=== PATIENT | female | born 1990 | race Caucasian/White ===

== ENCOUNTER 2017-03-01 19:00 | Emergency (ER) | payer MEDICAID ==
[~2017-03-01] VITALS: Ht 170.2 cm; Wt 79.4 kg
[~2017-03-01 19:00] MED LIST: PNV1TABL9 PO
--- NOTE | 2017-03-01 19:45 | ED Integumentary General ---
General Chief Complaint: Allergic Reaction Stated Complaint: POISON IVIS Nursing Triage Note: PT TO ED 6 W/ C/O POISON IVIS ONSET YESTERDAY. REPORTS SHE WAS UNABLE TO SEE PCP OR GET TO QUICK CARE BEFORE THEY CLOSED. C/O ITCHING Source: patient Exam Limitations: no limitations History of Present Illness Time seen by provider: 19:45 Initial Comments 26-year-old female patient presents to the emergency department complains of poison ivis beginning yesterday. Patient states she was weed eating and mowing yesterday morning. States this progressively has gotten worse throughout the day. Timing/Duration: yesterday, getting worse Location: face, torso, extremities (BUE) Possible Cause: exposure to allergen Modifying Factors: worse with calamine lotion, worse with scratching Allergies and Home Medications Allergies Coded Allergies: No Known Drug Allergies (Unverified , 11/10/13) Home Medications Famotidine 20 Mg Tablet, 20 MG PO BID, #20 Ref 0 Prescribed by: BURKE JASON on 03/01/172029 Pnv Cmb#21/Iron/Folic Acid 1 Each Tablet, 1 EACH PO DAILY, (Reported) Prednisone 20 Mg Tab, 40 MG PO DAILY, #10 Ref 0 Prescribed by: BURKE JASON on 03/01/172029 [blue goo] , 0.5 ML TOP QID PRN for RASH, #1 Ref 0 Prescribed by: BURKE JASON on 03/01/172029 Constitutional: no symptoms reported EENTM: no symptoms reported Respiratory: No cough, No short of breath, No stridor, No wheezing Cardiovascular: no symptoms reported Gastrointestinal: No abdominal pain, No diarrhea, No nausea, No vomiting Musculoskeletal: no symptoms reported Skin: see HPI, rash Psychiatric/Neurological: Denies Headache All Other Systems Reviewed Negative Unless Noted: Yes (Negative excepted noted.) Past Ypkmdan-Zvymxg-Omussv Hx Patient Social History Alcohol Use: Denies Use Recreational Drug Use: No Smoking Status: Current Everyday Smoker Type Used: Cigarettes 2nd Hand Smoke Exposure: Yes Recent Foreign Travel: No Contact w/Someone Who Travel: No Recent Infectious Disease Expo: No Recent Hopitalizations: No Immunizations Up To Date Date of Influenza Vaccine: Aug 01, 2013 Seasonal Allergies Seasonal Allergies: No Surgeries HX Surgeries: No Respiratory Hx Respiratory Disorders: No Cardiovascular Hx Cardiac Disorders: No Neurological Hx Neurological Disorders: No Reproductive System Hx Reproductive Disorders: No Sexually Transmitted Disease: No Genitourinary Hx Genitourinary Disorders: No Gastrointestinal Hx Gastrointestinal Disorders: No Musculoskeletal Hx Musculoskeletal Disorders: No Endocrine Hx Endocrine Disorders: No HEENT HX ENT Disorders: No Cancer Hx Cancer: No Psychosocial Hx Psychiatric Problems: No Integumentary HX Skin/Integumentary Disorder: No Blood Transfusions Hx Blood Disorders: No Reviewed Nursing Assessment Reviewed/Agree w Nursing PMH: Yes Family Medical History Significant Family History: No Pertinent Family Hx Physical Exam Vital Signs Vital Sign - Last 12Hours 03/01/17 03/01/17 19:18 20:41 Temp 98.4 Pulse 78 Resp 20 B/P (MAP) 115/89 Pulse Ox 98 O2 Delivery Room Air O2 Flow Rate 0 Capillary Refill : Less Than 3 Seconds General Appearance: WD/WN, no apparent distress HEENT: PERRL/EOMI, pharynx normal, other (rash on the right cheek noted consistent with poison ivis) Neck: non-tender, supple, normal inspection Cardiovascular: regular rate, rhythm, no murmur Respiratory: lungs clear, normal breath sounds, no respiratory distress Neurologic/Psychiatric: alert, normal mood/affect, oriented x 3 Skin: normal color, warm/dry, rash (papular raised rash with linear lesions noted on the BUE, rt cheek and anterior chest.) Skin Problem Location: face, upper extremities, torso Skin Problem Character: linear, rash (papular raised rash with linear lesions noted on the BUE, rt cheek and anterior chest.) Progress/Results/Core Measures Results/Orders My Orders Orders - BURKE JASON Famotidine Tablet (Pepcid Tablet) (03/01/17 20:20) Dexamethasone Pf Injection (Decadron Pf (03/01/17 20:20) Diphenhydramine Tablet (Benadryl Tablet) (03/01/17 20:30) Im/Sub-Q Injection Non-Ab Ed (03/01/17 ) Vital Signs/I&O Vital Sign - Last 12Hours 03/01/17 03/01/17 19:18 20:41 Temp 98.4 Pulse 78 0 Resp 20 0 B/P (MAP) 115/89 Pulse Ox 98 0 O2 Delivery Room Air O2 Flow Rate 0 Blood Pressure Mean: 98 Departure Impression Impression: Primary Impression: Poison ivis dermatitis Disposition: 01 HOME, SELF-CARE Condition: Improved Departure-Patient Inst. Decision time for Depature: 20:23 Referrals: NO,LOCAL PHYSICIAN (PCP) Primary Care Physician DOMINIC FONSECA (Family) Primary Care Physician Patient Instructions: Poison Ivis, Poison [place], Poison [place] (DC) Add. Discharge Instructions: All discharge instructions reviewed with patient and/or family. Voiced understanding. Medications as instructed. Benadryl ikjx-bwh-juqdmwg as directed for rash or itching. Cool compresses. Follow-up with her family practitioner if no improvement in symptoms. Return to the emergency department for worsened rash, difficulty swallowing, difficulty breathing, swelling of the face/throat/tongue, vomiting, headache, or any other concerns. Scripts Famotidine (Pepcid) 20 Mg Tablet 20 MG PO BID, #20 TAB 0 Refills Prov: BURKE JASON 03/01/17 [blue goo] No Conflict Check 0.5 ML TOP QID Y for RASH, #1 EA 0 Refills Prov: BURKE JASON 03/01/17 Prednisone (Prednisone) 20 Mg Tab 40 MG PO DAILY, #10 TAB 0 Refills Prov: BURKE JASON 03/01/17 BURKE JASON March 01, 2017 19:45
[2017-03-01] MEDS ORDERED: DEXAMETHASONE PF 10 MG/ML (DECADRON) VIAL IM STA (20:20)
[2017-03-01] MEDS ORDERED: FAMOTIDINE 20 MG (PEPCID) TABLET PO STA (20:20)
[2017-03-01] MEDS ORDERED: FAMO-119 PO ×2 (20:28→20:30)
[2017-03-01] MEDS ORDERED: PRD20T PO (20:30)
[2017-03-01] MEDS ORDERED: diphenhydrAMINE 25 MG TAB (BENADRYL) PO ONE (20:30)
[2017-03-01] MEDS ORDERED: blue goo TOP (20:30)
[2017-03-01 20:41] VITALS: BP 0/0
== END 2017-03-01 20:41 | disposition home or self-care (01) ==
LOC: EDUNIT# 19:00 → ER 19:02
DX: L23.7 Allergic contact dermatitis due to plants, except food (principal); F17.210 Nicotine dependence, cigarettes, uncomplicated
CPT/HCPCS: 96372; 99282

== ENCOUNTER 2017-03-07 12:48 | Emergency (ER) | payer MEDICAID ==
[~2017-03-07] VITALS: Ht 170.2 cm; Wt 79.4 kg
[~2017-03-07 12:48] MED LIST changes: +FAMO-119 PO; +PRD20T PO; +blue goo TOP
--- NOTE | 2017-03-07 13:11 | ED General ---
General Chief Complaint: Psych/Social Disorder Stated Complaint: ANXIETY Source of Information: Patient Exam Limitations: No Limitations History of Present Illness Time Seen by Provider: 13:09 Initial Comments Poor sleep habits, awakening in the middle of the night with palpitations, shortness of breath and anxiety, inability to focus, fatigue. Present for about the past week. She was started on prednisone 40 mg daily for poison enedina on the of this month. She stopped taking this 2 days ago. She reports a history of anxiety but states that her physician will not give her anything for it. Timing/Duration: 4-5 Days Severity: Moderate Allergies and Home Medications Allergies Coded Allergies: No Known Drug Allergies (Unverified , 11/10/13) Home Medications Famotidine 20 Mg Tablet, 20 MG PO BID, #20 Ref 0 Prescribed by: BURKE JASON on 03/01/172029 Lorazepam 0.5 Mg Tablet, 0.5 MG PO TID PRN for ANXIETY, #10 Prescribed by: LAINEY BRIGGS on 03/07/17 1326 Pnv Cmb#21/Iron/Folic Acid 1 Each Tablet, 1 EACH PO DAILY, (Reported) Prednisone 20 Mg Tab, 40 MG PO DAILY, #10 Ref 0 Prescribed by: BURKE JASON on 03/01/172029 [blue goo] , 0.5 ML TOP QID PRN for RASH, #1 Ref 0 Prescribed by: BURKE JASON on 03/01/172029 Constitutional: see HPI EENTM: see HPI Respiratory: no symptoms reported Cardiovascular: see HPI, palpitations Genitourinary: no symptoms reported Musculoskeletal: no symptoms reported Skin: no symptoms reported Psychiatric/Neurological: See HPI, Anxiety Hematologic/Lymphatic: No Symptoms Reported Past Sdfitmz-Sthzle-Fojusz Hx Patient Social History Alcohol Use: Denies Use Recreational Drug Use: No Smoking Status: Current Everyday Smoker Type Used: Cigarettes 2nd Hand Smoke Exposure: Yes Recent Foreign Travel: No Contact w/Someone Who Travel: No Recent Hopitalizations: No Immunizations Up To Date Date of Influenza Vaccine: Aug 01, 2013 Seasonal Allergies Seasonal Allergies: No Surgeries HX Surgeries: No Respiratory Hx Respiratory Disorders: No Cardiovascular Hx Cardiac Disorders: No Neurological Hx Neurological Disorders: No Reproductive System Hx Reproductive Disorders: No Sexually Transmitted Disease: No Genitourinary Hx Genitourinary Disorders: No Gastrointestinal Hx Gastrointestinal Disorders: No Musculoskeletal Hx Musculoskeletal Disorders: No Endocrine Hx Endocrine Disorders: No HEENT HX ENT Disorders: No Cancer Hx Cancer: No Psychosocial Hx Psychiatric Problems: No Integumentary HX Skin/Integumentary Disorder: No Blood Transfusions Hx Blood Disorders: No Family Medical History Significant Family History: No Pertinent Family Hx Physical Exam Vital Signs Vital Sign - Last 12Hours 03/07/17 12:57 Temp 98.1 Pulse 82 Resp 18 B/P (MAP) 133/72 Capillary Refill : General Appearance: No Apparent Distress, WD/WN Eyes: Bilateral Eye EOMI, Bilateral Eye Normal Inspection, Bilateral Eye PERRL HEENT: PERRL/EOMI, TMs Normal, Normal ENT Inspection, Pharynx Normal Neck: Full Range of Motion, Normal Inspection Respiratory: Normal Breath Sounds, No Accessory Muscle Use, No Respiratory Distress Cardiovascular: Regular Rate, Rhythm, Normal Peripheral Pulses Gastrointestinal: Normal Bowel Sounds, Non Tender, Soft Extremity: Normal Capillary Refill, Normal Inspection Neurologic/Psychiatric: Alert, Oriented x3, No Motor/Sensory Deficits Skin: Normal Color, Warm/Dry Progress/Results/Core Measures Results/Orders Lab Results Laboratory Tests Test 03/07/17 13:10 Range/Units White Blood Count 8.4 4.3-11.0 10^3/uL Red Blood Count 4.80 4.35-5.85 10^6/uL Hemoglobin 14.8 11.5-16.0 G/DL Hematocrit 42 35-52 % Mean Corpuscular Volume 88 80-99 FL Mean Corpuscular Hemoglobin 31 25-34 PG Mean Corpuscular Hemoglobin Concent 35 32-36 G/DL Red Cell Distribution Width 12.8 10.0-14.5 % Platelet Count 202 130-400 10^3/uL Mean Platelet Volume 10.3 7.4-10.4 FL Neutrophils (%) (Auto) 63 42-75 % Lymphocytes (%) (Auto) 30 12-44 % Monocytes (%) (Auto) 5 0-12 % Eosinophils (%) (Auto) 2 0-10 % Basophils (%) (Auto) 0 0-10 % Neutrophils # (Auto) 5.3 1.8-7.8 X 10^3 Lymphocytes # (Auto) 2.5 1.0-4.0 X 10^3 Monocytes # (Auto) 0.4 0.0-1.0 X 10^3 Eosinophils # (Auto) 0.2 0.0-0.3 10^3/uL Basophils # (Auto) 0.0 0.0-0.1 10^3/uL Urine Color YELLOW Urine Clarity SLIGHTLY CLOUDY Urine pH 8 5-9 Urine Specific [place] 1.010 L 1.016-1.022 Urine Protein NEGATIVE NEGATIVE Urine Glucose (UA) NEGATIVE NEGATIVE Urine Ketones NEGATIVE NEGATIVE Urine Nitrite NEGATIVE NEGATIVE Urine Bilirubin NEGATIVE NEGATIVE Urine Urobilinogen NORMAL NORMAL MG/DL Urine Leukocyte Esterase NEGATIVE NEGATIVE Urine RBC (Auto) NEGATIVE NEGATIVE Urine RBC NONE /HPF Urine WBC NONE /HPF Urine Squamous Epithelial Cells 25-50 H /HPF Urine Crystals NONE /LPF Urine Bacteria NEGATIVE /HPF Urine Casts NONE /LPF Urine Mucus NEGATIVE /LPF Urine Culture Indicated NO Sodium Level 142 135-145 MMOL/L Potassium Level 3.6 3.6-5.0 MMOL/L Chloride Level 108 H 98-107 MMOL/L Carbon Dioxide Level 27 21-32 MMOL/L Anion Gap 7 5-14 MMOL/L Blood Urea Nitrogen 8 7-18 MG/DL Creatinine 0.71 0.60-1.30 MG/DL Estimat Glomerular Filtration Rate > 60 BUN/Creatinine Ratio 11 Glucose Level 98 70-105 MG/DL Calcium Level 9.3 8.5-10.1 MG/DL Total Bilirubin 0.4 0.1-1.0 MG/DL Aspartate Amino Transf (AST/SGOT) 15 5-34 U/L Alanine Aminotransferase (ALT/SGPT) 18 0-55 U/L Alkaline Phosphatase 53 40-136 U/L Total Protein 6.7 6.4-8.2 G/DL Albumin 4.2 3.2-4.5 G/DL Thyroid Stimulating Hormone (TSH) 1.25 0.35-4.94 UIU/ML Free Thyroxine 1.01 0.70-1.48 NG/DL Urine Opiates Screen NEGATIVE NEGATIVE Urine Oxycodone Screen NEGATIVE NEGATIVE Urine Methadone Screen NEGATIVE NEGATIVE Urine Propoxyphene Screen NEGATIVE NEGATIVE Urine Barbiturates Screen NEGATIVE NEGATIVE Ur Tricyclic Antidepressants Screen NEGATIVE NEGATIVE Urine Phencyclidine Screen NEGATIVE NEGATIVE Urine Amphetamines Screen NEGATIVE NEGATIVE Urine Methamphetamines Screen NEGATIVE NEGATIVE Urine Benzodiazepines Screen NEGATIVE NEGATIVE Urine Cocaine Screen NEGATIVE NEGATIVE Urine Cannabinoids Screen NEGATIVE NEGATIVE My Orders Orders - LAINEY BRIGGS APRN Ua Culture If Indicated (03/07/17 13:02) Urine Bedside (03/07/17 13:02) Thyroid Stimulating Hormone (5/22/17 13:02) Free T4 (Free Thyroxine) (03/07/17 13:02) Drug Screen Stat (Urine) (03/07/17 13:02) Cbc With Automated Diff (03/07/17 13:02) Comprehensive Metabolic Panel (03/07/17 13:02) Alprazolam Tablet (Xanax Tablet) (03/07/17 13:15) Medications Given in ED Current Medications Medications Dose Ordered Sig/Irvin Route Start Time Stop Time Status Last Admin Dose Admin Alprazolam 0.25 mg ONCE ONCE PO 03/07/17 13:15 03/07/17 13:16 DC 03/07/17 13:16 0.25 MG Vital Signs/I&O Vital Sign - Last 12Hours 03/07/17 12:57 Temp 98.1 Pulse 82 Resp 18 B/P (MAP) 133/72 Departure Communication Progress Notes 1421-reports that she feels better after her Xanax. Heart rate 80s, oxygen saturation 97 percent on room air. No tachypnea. No history of DVT/PE. Nonsmoker. No recent surgery or immobilization. Impression Impression: Primary Impression: Anxiety Disposition: 01 HOME, SELF-CARE Condition: Stable Departure-Patient Inst. Decision time for Depature: 13:25 Referrals: NO,LOCAL PHYSICIAN (PCP/Family) Primary Care Physician Patient Instructions: Panic Disorder (DC) Add. Discharge Instructions: 1. Follow-up with your regular physician 2. Return to ER for any concerns 3. All discharge instructions reviewed with patient and/or family. Voiced understanding. Scripts Lorazepam (Lorazepam) 0.5 Mg Tablet 0.5 MG PO TID Y for ANXIETY, #10 TAB Prov: LAINEY BRIGGS [facility] C[facility] ASSISTANT DIRECTOR 03/07/17 LAINEY BRIGGS APRN March 07, 2017 13:11
[2017-03-07] MEDS ORDERED: ALPRAZolam 0.25 MG (XANAX) TAB PO ONE (13:15)
[2017-03-07 13:17] LABS: BASOPHILS % (AUTO) 0 % (0-10); EOSINOPHILS # (AUTO) 0.2 10^3/uL (0.0-0.3); EOSINOPHILS % (AUTO) 2 % (0-10); LYMPHOCYTES # (AUTO) 2.5 X 10^3 (1.0-4.0); LYMPHOCYTES % (AUTO) 30 % (12-44); MEAN CORPUSCULAR HEMOGLOBIN 31 PG (25-34); MEAN CORPUSCULAR HGB CONC 35 G/DL (32-36); MEAN CORPUSCULAR VOLUME 88 FL (80-99); MEAN PLATELET VOLUME 10.3 FL (7.4-10.4); MONOCYTES # (AUTO) 0.4 X 10^3 (0.0-1.0); MONOCYTES % (AUTO) 5 % (0-12); NEUTROPHILS # (AUTO) 5.3 X 10^3 (1.8-7.8); NEUTROPHILS % (AUTO) 63 % (42-75); PLATELET COUNT 202 10^3/uL (130-400); RED CELL DISTRIBUTION WIDTH 12.8 % (10.0-14.5); WHITE BLOOD COUNT 8.4 10^3/uL (4.3-11.0)
[2017-03-07 13:21] LABS: BILIRUBIN,URINE NEGATIVE (NEGATIVE); KETONES,URINE NEGATIVE (NEGATIVE); LEUKOCYTE ESTERASE ,URINE NEGATIVE (NEGATIVE); NITRITE,URINE NEGATIVE (NEGATIVE); PH,URINE 8 (5-9); PROTEIN,URINE NEGATIVE (NEGATIVE); UROBILINOGEN,URINE NORMAL (NORMAL)
[2017-03-07] MEDS ORDERED: LORA0.5T PO (13:26)
[2017-03-07 13:32] LABS: SQUAMOUS EPITHELIAL CELL,UR 25-50 /HPF
[2017-03-07 13:43] LABS: ALANINE AMINOTRANSFERASE 18 U/L (0-55); ALBUMIN 4.2 G/DL (3.2-4.5); ANION GAP 7 MMOL/L (5-14); ASPARTATE AMINO TRANSFERASE 15 U/L (5-34); BILIRUBIN,TOTAL 0.4 MG/DL (0.1-1.0); BLOOD UREA NITROGEN 8 MG/DL (7-18); BUN/CREATININE RATIO 11; CALCIUM 9.3 MG/DL (8.5-10.1); CARBON DIOXIDE 27 MMOL/L (21-32); CHLORIDE 108 MMOL/L (98-107); CREATININE SERUM 0.71 MG/DL (0.60-1.30); GFR ESTIMATED > 60; GLUCOSE 98 MG/DL (70-105); POTASSIUM 3.6 MMOL/L (3.6-5.0); SODIUM 142 MMOL/L (135-145); TOTAL PROTEIN 6.7 G/DL (6.4-8.2)
[2017-03-07 14:04] LABS: THYROID STIMULATING HORMONE 1.25 UIU/ML (0.35-4.94)
[2017-03-07 14:20] VITALS: BP 130/77
== END 2017-03-07 14:20 | disposition home or self-care (01) ==
LOC: EDUNIT# 12:48 → ER 12:51
DX: F41.9 Anxiety disorder, unspecified (principal); F17.210 Nicotine dependence, cigarettes, uncomplicated
CPT/HCPCS: 36415; 80053; 80306; 81000; 84439; 84443; 84703; 85025; 99283

== ENCOUNTER 2018-11-23 07:15 | Inpatient (IN) | payer MEDICAID ==
[2018-11-23] VITALS (66 sets, daily range): BP systolic 82–133; BP diastolic 47–75
[~2018-11-23] VITALS: Ht 170.2 cm; Wt 88.5 kg
[~2018-11-23 07:15] MED LIST changes: +LORA0.5T PO
--- NOTE | 2018-11-23 07:15 | NUR ---
Arrived to unit ambulates self for induction of labor. Accompanied by s.o. Wt obtained and to room 320. Gowned and urine sample obtained. to bed and monitors on. Oriented to room, call light and surroundings. plan of car reviewed with pt and s.o.
[2018-11-23] MEDS ORDERED: MINERAL OIL CONCENTRATE 99.9% 15 ML UDC TOP PRN (08:15)
[2018-11-23 08:23] LABS: BASOPHILS % (AUTO) 0 % (0-10); EOSINOPHILS # (AUTO) 0.2 10^3/uL (0.0-0.3); EOSINOPHILS % (AUTO) 2 % (0-10); HEMATOCRIT 33 % (35-52); HEMOGLOBIN 11.4 G/DL (11.5-16.0); LYMPHOCYTES # (AUTO) 1.8 X 10^3 (1.0-4.0); LYMPHOCYTES % (AUTO) 18 % (12-44); MEAN CORPUSCULAR HEMOGLOBIN 30 PG (25-34); MEAN CORPUSCULAR HGB CONC 34 G/DL (32-36); MEAN CORPUSCULAR VOLUME 87 FL (80-99); MEAN PLATELET VOLUME 11.3 FL (7.4-10.4); MONOCYTES # (AUTO) 0.8 X 10^3 (0.0-1.0); MONOCYTES % (AUTO) 8 % (0-12); NEUTROPHILS # (AUTO) 7.1 X 10^3 (1.8-7.8); NEUTROPHILS % (AUTO) 72 % (42-75); PLATELET COUNT 172 10^3/uL (130-400); WHITE BLOOD COUNT 9.8 10^3/uL (4.3-11.0)
[2018-11-23] MEDS ORDERED: OXYTOCIN/NORMAL SALINE 500 ML IV ONE (08:23)
[2018-11-23] MEDS ORDERED: OXYTOCIN/NORMAL SALINE 500 ML IV SCH ×2 (08:32→18:54)
[2018-11-23] MEDS: D5 LR IV SOLUTION 1,000 ML IV SCH ×2 (08:32→13:12)
[2018-11-23] MEDS ORDERED: SUFENTA 0.6MCG/ML BUPIVA 0.125 100 ML ONE (09:49)
[2018-11-23] MEDS ORDERED: fentaNYL INJECTION 100 MCG/2 ML AMP ONE (10:23)
[2018-11-23] MEDS ORDERED: BUPIVACAINE 0.25% 30 ML (SENSORCAINE) VIAL ONE (10:23)
[2018-11-23] MEDS ORDERED: LIDOCAINE PF 2% 5 ML (XYLOCAINE) VIAL ONE (10:34)
--- OUTSIDE RECORDS SUMMARY | 2018-11-23 10:40 | XMS REPORT ---
Author Author KEYSHAEDWARD ARSHAD Fernando [facility] Address Unknown Care Team Providers Care Dental Sales Representative Name Role Phone EDWARD FRANCOIS Unavailable PROBLEMS Type Condition ICD9-CM Code [id number] Code Onset Dates Condition Status SNOMED Code Problem Anxiety state, unspecified 300.00 Active 151605493 Problem Depressive disorder, not elsewhere classified 311 Active [id number] ALLERGIES No Known Allergies ENCOUNTERS Encounter Location Date Diagnosis [facility] [address] [place] [address] [id number] Mar, Dental examination Z01.20 [facility] [id number] [place] [address] [id number] Jan, [facility] [id number] [place] [address] [id number] Jan, Dental examination Z01.20 [facility] [id number] [place] [address] [id number] Nov, Dental examination Z01.20 [facility] [id number] [place] [address] [id number] Nov, Dental examination Z01.20 [facility] [id number] [place] [address] [id number] Mar, Encounter for dental examination Z01.20 [facility] [id number] [place] [address] [id number] Dec, Dental examination Z01.20 [facility] [id number] [place] [address] [id number] Jun, Dental examination V72.2 [facility] [id number] [place] [address] [id number] Apr, Dental examination V72.2 [facility] [id number] [place] [address] [phone] Nov, [facility] [address] [facility] [id number] [place] [address] Nov, [facility] [address] [facility] [id number], [place] [address] Oct, [facility] [address] [facility] [id number] [place] [address] Oct, IMMUNIZATIONS No Known Immunizations SOCIAL HISTORY Never Assessed REASON FOR VISIT caitlyn PLAN OF CARE Activity Details Follow Up prn Reason:referral to Dr. Donovan for endo VITAL SIGNS Blood pressure systolic 112 mmHg 2018-03-24 Blood pressure diastolic 64 mmHg 2018-03-24 MEDICATIONS Unknown Medications RESULTS No Results PROCEDURES Procedure Date Ordered Result Body Site LTD ORAL EVALUATION - PROBLEM FOCUS March 24, 2018 INSTRUCTIONS MEDICATIONS ADMINISTERED No Known Medications
--- OUTSIDE RECORDS SUMMARY | 2018-11-23 10:41 | XMS REPORT ---
Author Author KEYSHAEDWARD ARSHAD Fernando [facility] Address Unknown Care Team Providers Care Battery Assembler Dry Cell Name Role Phone EDWARD FRANCOIS Unavailable PROBLEMS Type Condition ICD9-CM Code [id number] Code Onset Dates Condition Status SNOMED Code Problem Anxiety state, unspecified 300.00 Active [id number] Problem Depressive disorder, not elsewhere classified 311 Active 92097220 ALLERGIES No Known Allergies ENCOUNTERS Encounter Location Date Diagnosis [facility] [address] [place] [address] [id number] Mar, Dental examination Z01.20 [facility] [id number] [place] [address] [id number] Jan, [facility] [id number] [place] [address] [id number] Jan, Dental examination Z01.20 [facility] [id number] [place] [address] [id number] Nov, Dental examination Z01.20 [facility] [id number] [place] [address] [id number] Nov, Dental examination Z01.20 [facility] [id number] [place] [address] [id number] Mar, Encounter for dental examination Z01.20 [facility] [id number] [place] [address] [id number] Dec, Dental examination Z01.20 [facility] [id number] [place] [address] [id number] Jun, Dental examination V72.2 [facility] [id number] [place] [address] [id number] Apr, Dental examination V72.2 [facility] [id number] [place] [phone] Nov, [facility] [address] [facility] [id number] [place] [address] Nov, [facility] [address] [facility] [id number], [place] [address] Oct, [facility] [address] [facility] [id number] [place] [address] Oct, IMMUNIZATIONS No Known Immunizations SOCIAL HISTORY Never Assessed REASON FOR VISIT Pain PLAN OF CARE Activity Details Follow Up prn Reason:fillings VITAL SIGNS Blood pressure systolic 113 mmHg 2017-11-30 Blood pressure diastolic 78 mmHg 2017-11-30 MEDICATIONS Unknown Medications RESULTS No Results PROCEDURES Procedure Date Ordered Result Body Site LTD ORAL EVALUATION - PROBLEM FOCUS Nov 30, 2017 INTRAORL-PERIAPICAL 1 FILM [id number] Nov 30, 2017 INSTRUCTIONS MEDICATIONS ADMINISTERED No Known Medications
--- OUTSIDE RECORDS SUMMARY | 2018-11-23 10:41 | XMS REPORT ---
Author Author KEYSHAEDWARD ARSHAD Fernando [facility] Address Unknown Care Team Providers Care Egg Tester Name Role Phone EDWARD FRANCOIS Unavailable PROBLEMS Type Condition ICD9-CM Code BGF06-RA Code Onset Dates Condition Status SNOMED Code Problem Anxiety state, unspecified 300.00 Active 713120733 Problem Depressive disorder, not elsewhere classified 311 Active 73616747 ALLERGIES No Known Allergies ENCOUNTERS Encounter Location Date Diagnosis [facility] [address] [place] [address] [id number] Mar, Dental examination Z01.20 [facility] [id number] [place] [address] [id number] Jan, [facility] [id number] [place] [address] [id number] Jan, Dental examination Z01.20 [facility] [id number] [place] [address] [id number] Nov, Dental examination Z01.20 [facility] [id number] [place] [address] [id number] Nov, Dental examination Z01.20 [facility] [id number] [place] [address] [id number] Mar, Encounter for dental examination Z01.20 [facility] [id number] [place] [address] [id number] Dec, Dental examination Z01.20 [facility] [id number] [place] [address] [id number] Jun, Dental examination V72.2 [facility] [id number] [place] [address] [id number] Apr, Dental examination V72.2 [facility] [id number] [place] [phone] Nov, [facility] [address] [facility] [id number], [place] [address] Nov, [facility] [address] [facility] [id number][place] [address] Oct, [facility] [address] [facility] [id number] [place] [address] Oct, IMMUNIZATIONS No Known Immunizations SOCIAL HISTORY Never Assessed REASON FOR VISIT filling PLAN OF CARE Activity Details Follow Up prn Reason:filling #7 VITAL SIGNS MEDICATIONS Unknown Medications RESULTS No Results PROCEDURES Procedure Date Ordered Result Body Site RESIN COMPOS - 1 SURFACE POSTERIOR Nov 25, 2017 INSTRUCTIONS MEDICATIONS ADMINISTERED No Known Medications
--- OUTSIDE RECORDS SUMMARY | 2018-11-23 10:41 | XMS REPORT ---
Author Author KEYSHAEDWARD ARSHAD Fernando [facility] Address Unknown Care Team Providers Care Company Tanker Truck Driver Name Role Phone EDWARD FRANCOIS Unavailable PROBLEMS Type Condition ICD9-CM Code FUC82-EO Code Onset Dates Condition Status SNOMED Code Problem Anxiety state, unspecified 300.00 Active 423256894 Problem Depressive disorder, not elsewhere classified 311 Active 82967667 ALLERGIES No Known Allergies ENCOUNTERS Encounter Location Date Diagnosis [facility] [address] [place] [address] [id number] Mar, Dental examination Z01.20 [facility] [id number] [place] [address] [id number] Jan, [facility] [id number] [place] [address] [id number] Jan, Dental examination Z01.20 [facility] [id number] [place] [address] [id number] Nov, Dental examination Z01.20 [facility] [id number] [place] [address] [id number] Nov, Dental examination Z01.20 [facility] [id number] [place] [address] [id number] Mar, Encounter for dental examination Z01.20 [facility] [id number] [place] [address] [id number] Dec, Dental examination Z01.20 [facility] [id number] [place] [address] [id number] Jun, Dental examination V72.2 [facility] [id number] [place] [address] [id number] Apr, Dental examination V72.2 [facility] [id number] [place] [phone] Nov, [facility] [address] [facility] [id number], [place] [address] Nov, [facility] [address] [facility] [id number], [place] [address] Oct, [facility] [address] [facility] [id number] [place] [address] Oct, IMMUNIZATIONS No Known Immunizations SOCIAL HISTORY Never Assessed REASON FOR VISIT Filling PLAN OF CARE Activity Details Follow Up prn Reason:filling #9 VITAL SIGNS Blood pressure systolic 118 mmHg 2018-02-01 Blood pressure diastolic 72 mmHg 2018-02-01 MEDICATIONS Unknown Medications RESULTS No Results PROCEDURES Procedure Date Ordered Result Body Site INTRAORL-PERIAPICAL 1 FILM [id number] February 01, 2018 BITEWING - SINGLE FILM February 01, 2018 RESIN COMPOS - 2 SURFACES ANTERIOR February 01, 2018 INSTRUCTIONS MEDICATIONS ADMINISTERED No Known Medications
--- OUTSIDE RECORDS SUMMARY | 2018-11-23 10:41 | XMS REPORT | Continuity of Care Document ---
Author Author [facility] Address Unknown Phone Unavailable Allergies Active Description Code Type Severity Reaction Onset Reported/Identified Relationship to Patient Clinical Status Yes No Known Drug Allergies [id number] Drug Allergy Unknown N/A 11/10/2013 Medications There is no data. Problems Date Dx Coded Attending Type Code Diagnosis Diagnosed By 10/31/2008 [facility] 300.01 AN PANIC DIS W/O AGORA 11/10/2013 DELMIS VENTURA MD Ot 646.83 PREG COMPL NEC-ANTEPART 11/10/2013 DELMIS VENTURA MD Ot 789.00 ABDOMINAL PAIN, UNSPECIFIED SITE 01/27/2014 DARWIN ARECHIGA DO Ot 599.0 URIN TRACT INFECTION NOS 01/27/2014 DARWIN ARECHIGA DO Ot 646.63 INFECTION-ANTEPARTUM 11/01/2014 [facility].00 AN ANXIETY UNSPEC 11/01/2014 [facility] 311 DEPRESSIVE DISORDER NOS 07/14/2016 RAMOS MAHAN, SEJAL Varghese Ot N39.0 URINARY TRACT INFECTION, SITE NOT SPECIF 03/01/2017 SEJAL BEASLEY MD Ot N39.0 URINARY TRACT INFECTION, SITE NOT SPECIF 03/01/2017 BURKE ONEILL Ot F17.210 NICOTINE DEPENDENCE, CIGARETTES, UNCOMPL 03/01/2017 BURKE ONEILL Ot L23.7 ALLERGIC CONTACT DERMATITIS DUE TO PLANT 03/01/2017 SEJAL BEASLEY MD Ot N39.0 URINARY TRACT INFECTION, SITE NOT SPECIF 03/03/2017 BURKE ONEILL Ot F17.210 NICOTINE DEPENDENCE, CIGARETTES, UNCOMPL 03/03/2017 BURKE ONEILL Ot L23.7 ALLERGIC CONTACT DERMATITIS DUE TO PLANT 03/07/2017 LAINEY BRIGGS APRN Ot F17.210 NICOTINE DEPENDENCE, CIGARETTES, UNCOMPL 03/07/2017 LAINEY BRIGGS APRN Ot F41.9 ANXIETY DISORDER, UNSPECIFIED 03/09/2017 LAINEY BRIGGS APRN Ot F17.210 NICOTINE DEPENDENCE, CIGARETTES, UNCOMPL 03/09/2017 LAINEY BRIGGS APRN Ot F41.9 ANXIETY DISORDER, UNSPECIFIED 03/09/2017 BRIGGSLAINEY APRN Ot F17.210 NICOTINE DEPENDENCE, CIGARETTES, UNCOMPL 03/09/2017 BRIGGS, LAINEY Franklin APRN Ot F41.9 ANXIETY DISORDER, UNSPECIFIED Procedures Code Description [place] [address] PSYCH DIAGNOSTIC EVALUATION 11/01/2014 Results Test Result Range Complete blood count (CBC) with automated white blood cell (WBC) differential - 03/07/17 13:10 Blood leukocytes automated count (number/volume) 8.4 10*3/uL 4.3-11.0 Blood erythrocytes automated count (number/volume) 4.80 10*6/uL 4.35-5.85 Venous blood hemoglobin measurement (mass/volume) 14.8 g/dL 11.5-16.0 Blood hematocrit (volume fraction) 42 % 35-52 Automated erythrocyte mean corpuscular volume 88 [foz_us] 80-99 Automated erythrocyte mean corpuscular hemoglobin (mass per erythrocyte) 31 pg 25-34 Automated erythrocyte mean corpuscular hemoglobin concentration measurement ( mass/volume) 35 g/dL 32-36 Automated erythrocyte distribution width ratio 12.8 % 10.0-14.5 Automated blood platelet count (count/volume) 202 10*3/uL 130-400 Automated blood platelet mean volume measurement 10.3 [foz_us] 7.4-10.4 Automated blood neutrophils/100 leukocytes 63 % 42-75 Automated blood lymphocytes/100 leukocytes 30 % 12-44 Blood monocytes/100 leukocytes 5 % 0-12 Automated blood eosinophils/100 leukocytes 2 % 0-10 Automated blood basophils/100 leukocytes 0 % 0-10 Blood neutrophils automated count (number/volume) 5.3 10*3 1.8-7.8 Blood lymphocytes automated count (number/volume) 2.5 10*3 1.0-4.0 Blood monocytes automated count (number/volume) 0.4 10*3 0.0-1.0 Automated eosinophil count 0.2 10*3/uL 0.0-0.3 Automated blood basophil count (count/volume) 0.0 10*3/uL 0.0-0.1 Complete urinalysis with reflex to culture - 03/07/17 13:10 Urine color determination YELLOW NRG Urine clarity determination SLIGHTLY CLOUDY NRG Urine pH measurement by test strip 8 5-9 Specific gravity of urine by test strip 1.010 1.016- 1.022 Urine protein assay by test strip, semi-quantitative NEGATIVE NEGATIVE Urine glucose detection by automated test strip NEGATIVE NEGATIVE Erythrocytes detection in urine sediment by light microscopy NEGATIVE NEGATIVE Urine ketones detection by automated test strip NEGATIVE NEGATIVE Urine nitrite detection by test strip NEGATIVE NEGATIVE Urine total bilirubin detection by test strip NEGATIVE NEGATIVE Urine urobilinogen measurement by automated test strip (mass/volume) NORMAL NORMAL Urine leukocyte esterase detection by dipstick NEGATIVE NEGATIVE Automated urine sediment erythrocyte count by microscopy (number/high power field) NONE NRG Automated urine sediment leukocyte count by microscopy (number/high power field ) NONE NRG Bacteria detection in urine sediment by light microscopy NEGATIVE NRG Squamous epithelial cells detection in urine sediment by light microscopy 25-50 NRG Crystals detection in urine sediment by light microscopy NONE NRG Casts detection in urine sediment by light microscopy NONE NRG Mucus detection in urine sediment by light microscopy NEGATIVE NRG Complete urinalysis with reflex to culture NO NRG Comprehensive metabolic panel - 03/07/17 13:10 Serum or plasma sodium measurement (moles/volume) 142 mmol/L 135-145 Serum or plasma potassium measurement (moles/volume) 3.6 mmol/L 3.6-5.0 Serum or plasma chloride measurement (moles/volume) 108 mmol/L 98-107 Carbon dioxide 27 mmol/L 21-32 Serum or plasma anion gap determination (moles/volume) 7 mmol/L 5-14 Serum or plasma urea nitrogen measurement (mass/volume) 8 mg/dL 7-18 Serum or plasma creatinine measurement (mass/volume) 0.71 mg/dL 0.60-1.30 Serum or plasma urea nitrogen/creatinine mass ratio 11 NRG Serum or plasma creatinine measurement with calculation of estimated glomerular filtration rate > NRG Serum or plasma glucose measurement (mass/volume) 98 mg/dL 70-105 Serum or plasma calcium measurement (mass/volume) 9.3 mg/dL 8.5-10.1 Serum or plasma total bilirubin measurement (mass/volume) 0.4 mg/dL 0.1-1.0 Serum or plasma alkaline phosphatase measurement (enzymatic activity/volume) 53 U/L 40-136 Serum or plasma aspartate aminotransferase measurement (enzymatic activity/ volume) 15 U/L 5-34 Serum or plasma alanine aminotransferase measurement (enzymatic activity/volume ) 18 U/L 0-55 Serum or plasma protein measurement (mass/volume) 6.7 g/dL 6.4-8.2 Serum or plasma albumin measurement (mass/volume) 4.2 g/dL 3.2-4.5 Urine drug screening test - 03/07/17 13:10 Urine phencyclidine detection by screening method NEGATIVE NEGATIVE Urine benzodiazepines detection by screening method NEGATIVE NEGATIVE Urine cocaine detection NEGATIVE NEGATIVE Urine amphetamines detection by screening method NEGATIVE NEGATIVE Urine methamphetamine detection by screening method NEGATIVE NEGATIVE Urine cannabinoids detection by screening method NEGATIVE NEGATIVE Urine opiates detection by screening method NEGATIVE NEGATIVE Urine barbiturates detection NEGATIVE NEGATIVE Screening urine tricyclic antidepressants detection NEGATIVE NEGATIVE Urine methadone detection by screening method NEGATIVE NEGATIVE Urine oxycodone detection NEGATIVE NEGATIVE Urine propoxyphene detection NEGATIVE NEGATIVE THYROID STIMULATING HORMONE - 03/07/17 13:10 THYROID STIMULATING HORMONE 1.25 u[iU]/mL 0.35-4.94 Serum or plasma thyroxine (T4) free measurement (mass/volume) - 03/07/17 13:10 Serum or plasma thyroxine (T4) free measurement (mass/volume) 1.01 ng/dL 0.70-1.48 Complete blood count (CBC) with automated white blood cell (WBC) differential - 11/23/18 07:50 Blood leukocytes automated count (number/volume) 9.8 10*3/uL 4.3-11.0 Blood erythrocytes automated count (number/volume) 3.82 10*6/uL 4.35-5.85 Venous blood hemoglobin measurement (mass/volume) 11.4 g/dL 11.5-16.0 Blood hematocrit (volume fraction) 33 % 35-52 Automated erythrocyte mean corpuscular volume 87 [foz_us] 80-99 Automated erythrocyte mean corpuscular hemoglobin (mass per erythrocyte) 30 pg 25-34 Automated erythrocyte mean corpuscular hemoglobin concentration measurement ( mass/volume) 34 g/dL 32-36 Automated erythrocyte distribution width ratio 13.0 % 10.0-14.5 Automated blood platelet count (count/volume) 172 10*3/uL 130-400 Automated blood platelet mean volume measurement 11.3 [foz_us] 7.4-10.4 Automated blood neutrophils/100 leukocytes 72 % 42-75 Automated blood lymphocytes/100 leukocytes 18 % 12-44 Blood monocytes/100 leukocytes 8 % 0-12 Automated blood eosinophils/100 leukocytes 2 % 0-10 Automated blood basophils/100 leukocytes 0 % 0-10 Blood neutrophils automated count (number/volume) 7.1 10*3 1.8-7.8 Blood lymphocytes automated count (number/volume) 1.8 10*3 1.0-4.0 Blood monocytes automated count (number/volume) 0.8 10*3 0.0-1.0 Automated eosinophil count 0.2 10*3/uL 0.0-0.3 Automated blood basophil count (count/volume) 0.0 10*3/uL 0.0-0.1 Blood type T Indirect antibody screen panel - 11/23/18 07:50 ABO+Rh group OP NRG Transfusion band number [id number] NRG Blood group antibody screen NEGATIVE NRG Encounters ACCT No. Visit Date/Time Discharge Status Pt. Type Provider Facility Loc./Unit Complaint [id number] 11/01/2014 11:03:00 11/01/2014 23:59:59 CLS Outpatient [facility] HOWARD Marisol [id number] 03/07/2017 12:51:00 03/07/2017 14:20:00 DIS Emergency LAINEY BRIGGS APRN [facility] ER ANXIETY [id number] 03/01/2017 19:02:00 03/01/2017 20:41:00 DIS Emergency BURKE ONEILL [facility] ER POISON IVIS [id number] 06/24/2016 15:32:00 06/24/2016 23:59:59 CLS Outpatient SEJAL BEASLEY MD [facility] RAD REC UTI [id number] 06/24/2016 13:52:00 06/24/2016 23:59:59 CLS Outpatient TU CARTER [facility] QUICK [id number] 05/27/2016 15:21:00 05/27/2016 23:59:59 CLS Outpatient TU CARTER [facility] QUICK URINE CULTURE [id number] 01/27/2014 20:21:00 01/27/2014 21:35:00 DIS Outpatient DARWIN ARECHIGA DO Via [facility] WSo ABD PAIN [id number] 11/10/2013 18:26:00 11/10/2013 19:45:00 DIS Emergency DELMIS VENTURA MD [facility] ER 12 WKS; ABD PAIN [id number] 11/23/2018 07:15:00 ACT Inpatient ROBI ALVARADO MD [facility] LDRP INDUCTION [id number] 08/02/2016 15:18:00 08/02/2016 23:59:00 [place] [id number] 03/24/2018 11:30:00 03/24/2018 23:59:59 [facility] [place] [facility]
--- OUTSIDE RECORDS SUMMARY | 2018-11-23 10:41 | XMS REPORT ---
Author Author LEXUS MEADOWS [facility] Address [address] [place] [address] Care Team Providers Care Solar Photovoltaic Electrician Name Role Phone LEXUS MEADOWS Unavailable PROBLEMS Type Condition ICD9-CM Code [id number] Code Onset Dates Condition Status SNOMED Code Problem Anxiety state, unspecified 300.00 Active 464758389 Problem Depressive disorder, not elsewhere classified 311 Active [id number] ALLERGIES No Known Allergies ENCOUNTERS Encounter Location Date Diagnosis [facility] [address] [place] [address] [id number] Jan, [facility] [address] [id number] Nov, Dental examination Z01.20 [facility] [id number] [place] [address] [id number] Nov, Dental examination Z01.20 [facility] [address] [id number] Mar, Encounter for dental examination Z01.20 [facility] [id number] [place] [address] [phone] Dec, Dental examination Z01.20 [facility] [id number] [place] [address] [id number] Jun, Dental examination V72.2 [facility] [id number] [place] [address] [id number] Apr, Dental examination V72.2 [facility] [id number] [place] [address] [phone] Nov, [facility] [id number] [place] [address] [id number] Nov, [facility] [id number] [place] [address] Oct, [facility] [address] [facility] [id number] [place] [address] Oct, IMMUNIZATIONS No Known Immunizations SOCIAL HISTORY Never Assessed REASON FOR VISIT PROPHY/JESSICA PLAN OF CARE Activity Details Follow Up First Available Reason:REstorative VITAL SIGNS MEDICATIONS Unknown Medications RESULTS No Results PROCEDURES Procedure Date Ordered Result Body Site COMP ORAL EVALUATION - NEW/EST PT April 06, 2017 INTRAORL-PERIAPICAL 1 FILM 87167 April 06, 2017 INTRAORL-PERIAPICAL EA ADD FILM April 06, 2017 INTRAORL-PERIAPICAL EA ADD FILM April 06, 2017 BITEWINGS - FOUR FILMS April 06, 2017 INSTRUCTIONS MEDICATIONS ADMINISTERED No Known Medications
--- OUTSIDE RECORDS SUMMARY | 2018-11-23 10:41 | XMS REPORT ---
Author Author KEYSHAEDWARD ARSHAD Fernando [facility] Address Unknown Care Team Providers Care Line Cook Name Role Phone EDWARD FRANCOIS Unavailable PROBLEMS Type Condition ICD9-CM Code IXD69-NW Code Onset Dates Condition Status SNOMED Code Problem Anxiety state, unspecified 300.00 Active 546248523 Problem Depressive disorder, not elsewhere classified 311 Active 20624332 ALLERGIES No Information ENCOUNTERS Encounter Location Date Diagnosis [facility] [address] [id number] Mar, Dental examination Z01.20 [facility] [id number] [place] [address] [id number] Jan, [facility] [id number] [place] [address] [phone] Jan, Dental examination Z01.20 [facility] [id number] [place] [address] [phone] Nov, Dental examination Z01.20 [facility] [id number] [place] [address] [id number] Nov, Dental examination Z01.20 [facility] [id number] [place] [address] [phone] Mar, Encounter for dental examination Z01.20 [facility] [id number] [place] [address] [id number] Dec, Dental examination Z01.20 [facility] [id number] [place] [address] [id number] Jun, Dental examination V72.2 [facility] [id number] [place] [address] [phone] Apr, Dental examination V72.2 [facility] [id number] [place] [phone] Nov, [facility] [address] [facility] [id number], [place] [address] Nov, [facility] [address] [facility] [id number], [place] [address] Oct, [facility] [address] [facility] [id number], [place] [address] Oct, IMMUNIZATIONS No Known Immunizations SOCIAL HISTORY Never Assessed REASON FOR VISIT Referral for RCT #20 PLAN OF CARE VITAL SIGNS MEDICATIONS Unknown Medications RESULTS No Results PROCEDURES No Known procedures INSTRUCTIONS MEDICATIONS ADMINISTERED No Known Medications
[2018-11-23] MEDS ORDERED: LACTATED RINGERS 1,000 ML IV SCH (10:56)
[2018-11-23] MEDS ORDERED: diphenhydrAMINE 50 MG/ML INJ (BENADRYL) IV PRN (11:00)
[2018-11-23] MEDS ORDERED: ONDANSETRON 4 MG/2 ML (SDV) Z0FRAN IV PRN (11:00)
[2018-11-23] MEDS ORDERED: EPIDURAL (SUFENTA 0.6MCG/ML BUPIVA 0.125%) 100 ML BAG EPI PRN (11:00)
[2018-11-23] MEDS ORDERED: NALOXONE 0.4 MG/ML 1 ML (NARCAN) VIAL IV PRN (11:00)
--- NOTE | 2018-11-23 13:13 | Labor Progress Note ---
Labor Progress Note Labor Progress Note Date Seen by Provider: Nov 23, 2018 Time Seen by Provider: 12:55 Subjective: Pt denies complaints. Objective: Cervical exam: 50/-3 Consistency: soft Position: mid Presentation: vertex heart tones: normal baseline, moderate variability, reactive Tocometer: 4 ctx/10 minutes Assessment/Plan: Sanaz Francis is a (27 /Para / ,Gestational Age (wks)39 here for IOL. AROM done with clear fluid CEFM/TOCO Continue pitocin Anesthesia: epidural Anticipate vaginal delivery. Vitals - Labs Vital Signs - I&O Vital Signs 11/23/18 11/23/18 11:18 12:00 Temp 96.7 Pulse 72 Resp 18 B/P (MAP) 124/68 (86) Pulse Ox 98 O2 Delivery Room Air Labs Laboratory Tests 11/23/18 07:50: White Blood Count 9.8, Red Blood Count 3.82L, Hemoglobin 11.4L, Hematocrit 33L, Mean Corpuscular Volume 87, Mean Corpuscular Hemoglobin 30, Mean Corpuscular Hemoglobin Concent 34, Red Cell Distribution Width 13.0, Platelet Count 172, Mean Platelet Volume 11.3H, Neutrophils (%) (Auto) 72, Lymphocytes (%) (Auto) 18 , Monocytes (%) (Auto) 8, Eosinophils (%) (Auto) 2, Basophils (%) (Auto) 0, Neutrophils # (Auto) 7.1, Lymphocytes # (Auto) 1.8, Monocytes # (Auto) 0.8, Eosinophils # (Auto) 0.2, Basophils # (Auto) 0.0 JIA PHAM MD Nov 23, 2018 13:13
[2018-11-23] MEDS ORDERED: CATHETER FLUSH 10 ML SYR IV SCH ×2 (14:00→22:00)
--- NOTE | 2018-11-23 14:57 | History & Physical-OB ---
OB - Chief Complaint & HPI Date/Time Date of Admission: Date of Admission: Nov 23, 2018 at 07:15 Date seen by a Provider: Nov 23, 2018 Time Seen by a Provider: 14:55 Chief Complaint/History OB-Reason for Admission/Chief: Induction of Labor Hx : 2 Hx Para: 1 Expected Date of Delivery: Nov 30, 2018 Gestational Age in Weeks: 39 Gestational Age in Days: 0 Indication for induction: maternal discomfort Admission Nurse Assessment Rev: Yes Allergies and Home Medications Allergies Coded Allergies: No Known Drug Allergies (Unverified , 11/10/13) Home Medications Famotidine 20 Mg Tablet, 20 MG PO BID Prescribed by: BURKE JASON on 03/01/172029 Lorazepam 0.5 Mg Tablet, 0.5 MG PO TID PRN for ANXIETY Prescribed by: LAINEY BRIGGS on 03/07/17 1326 Pnv Cmb#21/Iron/Folic Acid 1 Each Tablet, 1 EACH PO DAILY, (Reported) Prednisone 20 Mg Tab, 40 MG PO DAILY Prescribed by: BURKE JASON on 03/01/172029 [blue goo] , 0.5 ML TOP QID PRN for RASH Prescribed by: BURKE JASON on 03/01/172029 Patient Home Medication List Home Medication List Reviewed: Yes OB - History Hx of Present Care: Yes Ultrasounds: Normal mid trimester US Obstetrical Complications: None Medical Complications: None Delivery History Hx Blood Disorders: No Adverse Rxn to Tranfusion: No Patient Past Medical History Healthy Social History/Family History HIV/AIDS: No Sexually Transmitted Disease: No Alcohol Use: Denies Use Recreational Drug Use: No 2nd Hand Smoke Exposure: Yes Immunizations Hepatitis A: No Hepatitis B: No Date of Influenza Vaccine: Aug 16, 2018 OB - Admission Exam Physical Exam Vitals: Vital Signs 11/23/18 11/23/18 13:30 14:00 Temp 97.5 Pulse 80 Resp 18 B/P (MAP) 126/63 (84) Pulse Ox 97 O2 Delivery Room Air HEENT: NCAT Heart: Rhythm Normal Lungs: Clear Abdomen: Gravid Extremities: Normal Reflexes: Normal Cervical Dilatation: 6cm Effacement: 100% Membranes: Ruptured Amniotic Fluid: Clear Heart Rate: 140's Accelerations: Accelerations Present Decelerations: No Decelerations Short Term Variability: Present Longterm Variability: Average (6-25) Labs Laboratory Tests Test 11/23/18 07:50 Range/Units White Blood Count 9.8 4.3-11.0 10^3/uL Red Blood Count 3.82 L 4.35-5.85 10^6/uL Hemoglobin 11.4 L 11.5-16.0 G/DL Hematocrit 33 L 35-52 % Mean Corpuscular Volume 87 80-99 FL Mean Corpuscular Hemoglobin 30 25-34 PG Mean Corpuscular Hemoglobin Concent 34 32-36 G/DL Red Cell Distribution Width 13.0 10.0-14.5 % Platelet Count 172 130-400 10^3/uL Mean Platelet Volume 11.3 H 7.4-10.4 FL Neutrophils (%) (Auto) 72 42-75 % Lymphocytes (%) (Auto) 18 12-44 % Monocytes (%) (Auto) 8 0-12 % Eosinophils (%) (Auto) 2 0-10 % Basophils (%) (Auto) 0 0-10 % Neutrophils # (Auto) 7.1 1.8-7.8 X 10^3 Lymphocytes # (Auto) 1.8 1.0-4.0 X 10^3 Monocytes # (Auto) 0.8 0.0-1.0 X 10^3 Eosinophils # (Auto) 0.2 0.0-0.3 10^3/uL Basophils # (Auto) 0.0 0.0-0.1 10^3/uL OB - Assessment/Plan/Diagnosis Assessment Assessment: induction of labor Admission Dx Term induction of labor. Admission Status: Inpatient Order (span 2 midnights) Reason for Inpatient Admission: Term induction of labor. Plan Plan: Expectant Management, Induction Induction Method: per Pitocin Protocol ROBI ALVARADO MD Nov 23, 2018 14:57
--- NOTE | 2018-11-23 15:15 | NUR ---
Report to Marisol Garcia RN
--- NOTE | 2018-11-23 17:25 | OB Labor & Delivery Record ---
Vag Delivery Note Vag Delivery Note Date of Delivery: 11/23/18 Preoperative Diagnosis: Sanaz Francis is a (27 /Para 2 / 1, Gestational Age (wks)39with [0 days] Postoperative Diagnosis: Same Surgeon: ROBI ALVARADO Contact Center Specialist: [none] Anesthesia: [epidural] Delivery Type: [] Findings: [] Viable [male] infant, apgars [8/9], weight [8 pounds 8 ounces] Lacerations: 2nd degree perineal Intact placenta with 3 vessel cord. One loose nuchal cord. Estimated Blood Loss: [300] ml Complications: None Condition: Stable Description of Procedure: The patient is a 27 year old female who presented [for induction of labor]. She was admitted and informed consent was obtained. Her labor course was remarkable for [nothing] She progressed to complete dilatation and began to push. She was then set up for delivery. The 's head was delivered atraumatically in the [OA] position. The shoulders and remainder of the ' s body were then delivered without difficulty. Upon delivery, the head was held below the level of the perineum and the mouth and nares were bulb suctioned. The cord was doubly clamped and cut and the infant was placed on maternal abdomen. An intact placenta with 3-vessel cord delivered via Haile and there was found to be minimal bleeding.~ Vigorous fundal massage was performed and the fundus was found to be firm. IV oxytocin was given. Examination of the vagina and perineum revealed a [2nd degree perineal] laceration repaired in the usual fashion with 3-0 vicryl suture. Following the repair, sponge, instrument and needle counts were correct. Mom and baby were both in stable condition in the labor suite. Vitals - Labs Vital Signs - I&O Vital Signs Date Time Temp Pulse Resp B/P (MAP) Pulse Ox O2 Delivery O2 Flow Rate FiO2 11/23/18 15:45 71 18 100/53 (69) Room Air 11/23/18 15:30 98.1 78 18 119/63 (81) Room Air 11/23/18 15:15 83 18 117/58 (77) Room Air 11/23/18 15:00 18 115/59 (77) Room Air 11/23/18 14:45 78 18 113/55 (74) Room Air 11/23/18 14:30 76 18 111/55 (73) Room Air 11/23/18 14:15 83 18 119/55 (76) Room Air 11/23/18 14:00 80 18 126/63 (84) 97 Room Air 11/23/18 13:45 81 18 123/69 (87) 97 Room Air 11/23/18 13:30 97.5 80 18 122/66 (84) 97 Room Air 11/23/18 13:15 82 18 117/59 (78) 97 Room Air 11/23/18 13:00 77 18 115/60 (78) 97 Room Air 11/23/18 12:45 82 18 118/60 (79) 97 Room Air 11/23/18 12:30 85 18 97 Room Air 11/23/18 12:15 79 18 117/65 (82) 97 Room Air 11/23/18 12:00 72 18 124/68 (86) 98 Room Air 11/23/18 11:45 78 18 119/70 (86) 98 Room Air 11/23/18 11:30 80 18 121/58 (79) 98 Room Air 11/23/18 11:27 82 18 125/61 (82) 99 Room Air 11/23/18 11:24 77 18 117/62 (80) 99 Room Air 11/23/18 11:21 78 18 118/55 (76) 99 Room Air 11/23/18 11:18 96.7 75 18 116/53 (74) 99 Room Air 11/23/18 11:15 77 18 105/50 (68) 99 Room Air 11/23/18 11:13 75 18 108/53 (71) 99 Room Air 11/23/18 11:12 70 18 107/51 (69) 99 Room Air 11/23/18 11:11 75 18 105/51 (69) 99 Room Air 11/23/18 11:10 67 18 106/52 (70) 99 Room Air 11/23/18 11:09 65 18 105/51 (69) 99 Room Air 11/23/18 11:08 80 18 100/50 (67) 99 Room Air 11/23/18 11:07 76 18 103/52 (69) 99 Room Air 11/23/18 11:06 78 18 87/50 (62) 99 Room Air 11/23/18 11:05 82 18 101/56 (71) 99 Room Air 11/23/18 11:04 75 18 127/58 (81) 99 Room Air 11/23/18 11:03 79 18 127/71 (89) 99 Room Air 11/23/18 11:02 73 18 111/57 (75) 99 Room Air 11/23/18 11:01 72 18 106/58 (74) 99 Room Air 11/23/18 11:00 76 18 96/54 (68) 98 Room Air 11/23/18 10:59 71 18 93/54 (67) 99 Room Air 11/23/18 10:58 73 18 94/52 (66) 99 Room Air 11/23/18 10:57 75 18 82/47 (59) 99 Room Air 11/23/18 10:55 86 18 111/60 (77) 98 Room Air 11/23/18 10:50 85 18 126/70 (88) 99 Room Air 11/23/18 10:45 80 18 124/69 (87) 99 Room Air 11/23/18 10:40 80 18 115/64 (81) 100 Room Air 11/23/18 10:35 82 18 127/75 (92) 100 Room Air 11/23/18 10:30 83 18 130/64 (86) 100 Room Air 11/23/18 10:15 79 18 119/60 (79) Room Air 11/23/18 10:00 78 18 117/63 (81) Room Air 11/23/18 09:45 84 108/71 (83) Room Air 11/23/18 09:30 Room Air 11/23/18 09:15 88 18 112/68 (83) Room Air 11/23/18 09:00 87 18 112/69 (83) Room Air 11/23/18 08:45 90 18 121/75 (90) Room Air 11/23/18 07:25 96.7 88 18 118/68 (85) Room Air Labs Laboratory Tests 11/23/18 07:50: White Blood Count 9.8, Red Blood Count 3.82L, Hemoglobin 11.4L, Hematocrit 33L, Mean Corpuscular Volume 87, Mean Corpuscular Hemoglobin 30, Mean Corpuscular Hemoglobin Concent 34, Red Cell Distribution Width 13.0, Platelet Count 172, Mean Platelet Volume 11.3H, Neutrophils (%) (Auto) 72, Lymphocytes (%) (Auto) 18 , Monocytes (%) (Auto) 8, Eosinophils (%) (Auto) 2, Basophils (%) (Auto) 0, Neutrophils # (Auto) 7.1, Lymphocytes # (Auto) 1.8, Monocytes # (Auto) 0.8, Eosinophils # (Auto) 0.2, Basophils # (Auto) 0.0 ROBI ALVARADO MD Nov 23, 2018 17:24
[2018-11-23] MEDS ORDERED: MEASLES,MUMPS,RUBELLA 1 EA INJ SQ ONE (19:00)
[2018-11-23] MEDS ORDERED: BENZOCAINE/MENTHOL (DERMOPLAST) 56 ML CAN TP PRN (19:00)
[2018-11-23] MEDS ORDERED: TETANUS,DIPTH,PERTUSS P/F (BOOSTRIX) 0.5 ML VIAL IM ONE (19:00)
[2018-11-23] MEDS ORDERED: WITCH HAZEL(TUCKS) 40 EA JAR TOP PRN (19:00)
[2018-11-23] MEDS: IBUPROFEN 600 MG (MOTRIN) TAB PO SCH (22:12)
[2018-11-23] MEDS: DOCUSATE SODIUM 100 MG (COLACE) CAP PO SCH (22:12)
[2018-11-24 00:20] VITALS: BP 117/76
[2018-11-24] MEDS ORDERED: ACETAMINOPHEN 500 MG TAB (TYLENOL) PO PRN (01:30)
[2018-11-24 04:54] VITALS: BP 117/67
[2018-11-24] MEDS: IBUPROFEN 600 MG (MOTRIN) TAB PO SCH ×4 (04:54→22:52)
[2018-11-24] MEDS ORDERED: CALCIUM CARBONATE 500 MG (TUMS) TAB.CHEW PO PRN (05:15)
[2018-11-24 05:44] LABS: BASOPHILS % (AUTO) 0 % (0-10); EOSINOPHILS # (AUTO) 0.2 10^3/uL (0.0-0.3); EOSINOPHILS % (AUTO) 1 % (0-10); HEMATOCRIT 30 % (35-52); HEMOGLOBIN 9.9 G/DL (11.5-16.0); LYMPHOCYTES # (AUTO) 2.4 X 10^3 (1.0-4.0); LYMPHOCYTES % (AUTO) 20 % (12-44); MEAN CORPUSCULAR HEMOGLOBIN 30 PG (25-34); MEAN CORPUSCULAR HGB CONC 33 G/DL (32-36); MEAN CORPUSCULAR VOLUME 90 FL (80-99); MEAN PLATELET VOLUME 10.7 FL (7.4-10.4); MONOCYTES # (AUTO) 1.2 X 10^3 (0.0-1.0); MONOCYTES % (AUTO) 10 % (0-12); NEUTROPHILS # (AUTO) 8.1 X 10^3 (1.8-7.8); NEUTROPHILS % (AUTO) 68 % (42-75); PLATELET COUNT 148 10^3/uL (130-400); RED CELL DISTRIBUTION WIDTH 12.9 % (10.0-14.5); WHITE BLOOD COUNT 11.8 10^3/uL (4.3-11.0)
[2018-11-24] MEDS ORDERED: IBUP-844 PO (08:17)
[2018-11-24] MEDS ORDERED: DOCU100C37 PO (08:17)
[2018-11-24] MEDS ORDERED: FERR325T18 PO (08:17)
[2018-11-24 10:05] VITALS: BP 119/71
[2018-11-24] MEDS: DOCUSATE SODIUM 100 MG (COLACE) CAP PO SCH ×2 (10:11→20:44)
[2018-11-24] MEDS: PRENATAL VITAMIN 1 EA TAB PO SCH (10:11)
--- NOTE | 2018-11-24 14:04 | Progress Note (SOAP) ---
Subjective Subjective/Events-last exam PPD#1, doing well. Bleeding decreasing. Denies dizziness, shortness of breath. going well except hard to wake baby up this am. Review of Systems Date Seen by Provider: Nov 24, 2018 Time Seen by Provider: 08:50 Objective Exam Last Set of Vital Signs Vital Signs Date Time Temp Pulse Resp B/P (MAP) Pulse Ox O2 Delivery O2 Flow Rate FiO2 11/24/18 10:05 99.0 74 20 119/71 (87) 98 Room Air Capillary Refill : General: Alert, No Acute Distress Lungs: Clear to Auscultation, Normal Air Movement Heart: Regular Rate, No Murmurs Abdomen: Other (fundus firm below umbilicus) Extremities: No Edema Results/Procedures Lab Laboratory Tests 11/24/18 05:34: White Blood Count 11.8H, Red Blood Count 3.29L, Hemoglobin 9.9L, Hematocrit 30L , Mean Corpuscular Volume 90, Mean Corpuscular Hemoglobin 30, Mean Corpuscular Hemoglobin Concent 33, Red Cell Distribution Width 12.9, Platelet Count 148, Mean Platelet Volume 10.7H, Neutrophils (%) (Auto) 68, Lymphocytes (%) (Auto) 20 , Monocytes (%) (Auto) 10, Eosinophils (%) (Auto) 1, Basophils (%) (Auto) 0, Neutrophils # (Auto) 8.1H, Lymphocytes # (Auto) 2.4, Monocytes # (Auto) 1.2H, Eosinophils # (Auto) 0.2, Basophils # (Auto) 0.0 Assessment/Plan Assessment/Plan Assessment & Plan PPD#1- doing well, routine care Clinical Quality Measures DVT/VTE Risk/Contraindication: Risk Factor Score Per Nursin RFS Level Per Nursing on Admit: 1=Low/No VTE PPX JIA PHAM MD Nov 24, 2018 14:04
[2018-11-24 17:05] VITALS: BP 125/59
--- NOTE | 2018-11-24 19:15 | NUR ---
REPORT RECEIVED AND CARES RESUMED BY THIS NURSE.
[2018-11-24 20:30] VITALS: BP 125/65
--- NOTE | 2018-11-24 20:30 | NUR ---
COMPLETE SHIFT ASSESSMENT DONE. VSS. DENIES ANY NEEDS. DISCUSSED BREAST VS BOTTLE FEEDING AND ACCOMPLISHING BOTH. PT VERBALIZES UNDERSTANDING. WISHES TO CONT WITH SUPPLEMENTING WITH FORMULA AFTER BREASTFEEDS.
--- NOTE | 2018-11-24 22:50 | NUR ---
PT IN BED WITH S/O AT SIDE. IN OPEN CRIB RESTING WELL. DENIES ANY NEEDS AT THIS TIME.
--- NOTE | 2018-11-25 00:40 | NUR ---
PT HAS JUST FINISHED . REQUESTS BE TAKEN TO [facility] FOR WEIGHT AND REASSESSMENT.
--- NOTE | 2018-11-25 00:50 | NUR ---
INFANT RETURNED TO MOM. PT DENIES ANY NEEDS AT THIS TIME.
[2018-11-25 03:45] VITALS: BP 113/59
[2018-11-25] MEDS: IBUPROFEN 600 MG (MOTRIN) TAB PO SCH (05:52)
--- NOTE | 2018-11-25 06:00 | NUR ---
MOTRIN ADMINISTERED. PT DENIES ANY NEEDS.
--- NOTE | 2018-11-25 07:16 | NUR ---
REPORT TO NEXT SHIFT.
--- NOTE | 2018-11-25 07:39 | Discharge Instructions ---
Discharge Inst-Women's Serv Depart Medications New, Converted or Re-Newed RX: Transmitted to Pharmacy New Medications: Ferrous Sulfate (Ferrous Sulfate) 325 Mg Tablet 325 MG PO DAILY, #30 TAB 0 Refills Docusate Sodium (Docusate Sodium) 100 Mg Capsule 100 MG PO BID PRN for CONSTIPATION-1ST LINE, #60 CAP 0 Refills Ibuprofen (Ibu) 600 Mg Tablet 600 MG PO Q6H PRN for PAIN-MODERATE, #60 TAB 0 Refills Continued Medications: Pnv Cmb#21/Iron/Folic Acid ( Complete Caplet) 1 Each Tablet 1 EACH PO DAILY, TAB Discontinued Medications: [blue goo] () 0.5 ML TOP QID PRN for RASH, #1 EA 0 Refills Famotidine (Pepcid) 20 Mg Tablet 20 MG PO BID, #20 TAB 0 Refills Lorazepam (Lorazepam) 0.5 Mg Tablet 0.5 MG PO TID PRN for ANXIETY, #10 TAB Prednisone (Prednisone) 20 Mg Tab 40 MG PO DAILY, #10 TAB 0 Refills Follow Up/Instructions Goal/Follow Up: Follow up with Dr. Alvarado in 6 weeks for visit. Activity Activity: Activity as Tolerated (avoid strenuous activity x 6 weeks) Driving Instructions: You May Drive Nothing Inside Vagina: No Douching, No [place], No Tampons Diet Discharge Diet: Regular Diet Symptoms to Report to : Swelling Increased, Fever Over 101 Degrees F, Pain/ Pressure in Chest, Vaginal Bleeding Increase, Cramps in Feet or Legs, Vaginal Discharge Foul, Dizziness/Fainting, Nausea/Vomiting, Shortness of Breath For Any Problems or Questions: Contact Your Physician Copies To 1: ROBI ALVARADO MD, BETHANY N MD Nov 24, 2018 08:18
[2018-11-25 08:36] VITALS: BP 111/60
[2018-11-25] MEDS: PRENATAL VITAMIN 1 EA TAB PO SCH (08:38)
[2018-11-25] MEDS: DOCUSATE SODIUM 100 MG (COLACE) CAP PO SCH (08:39)
--- NOTE | 2018-11-25 09:00 | NUR ---
Dr Oswald here to see pt.
--- NOTE | 2018-11-25 10:56 | NUR ---
Discharge instructions explained to pt with copy provided to pt. Pt notified of need to schedule follow up. Pt educated on and notified of scripts to be called in to preferred pharmacy. Pt verbalizes understanding of teaching, signs to verify. Pt denies questions or concerns at this time.
--- NOTE | 2018-11-25 11:03 | NUR ---
Prescriptions called in to [facility] per pt request
--- NOTE | 2018-11-25 11:16 | Discharge Summary ---
Diagnosis/Chief Complaint Date of Admission Nov 23, 2018 at 07:15 Date of Discharge Nov 25, 2018 Admission Diagnosis Admission Diagnosis Term IUP at 39 weeks Induction of labor Discharge Diagnosis s/p spontaneous vaginal delivery Asymptomatic anemia Chief Complaint/HPI Chief Complaint/HPI 27 yo G2 now P2 admitted for IOL at 39 weeks. Discharge Summary-Simple/Stand Discharge Physical Examination Allergies: Coded Allergies: No Known Drug Allergies (Unverified , 11/10/13) Vitals & I&Os Vital Sign - Last 12Hours Date Time Temp Pulse Resp B/P (MAP) Pulse Ox O2 Delivery O2 Flow Rate FiO2 11/25/18 08:36 97.9 65 18 111/60 (77) 98 Room Air General Appearance: Alert, No Acute Distress Respiratory: Clear to Auscultation, Normal Air Movement Cardiovascular: Regular Rate, No Murmurs Neuro: Normal Gait Psych/Mental Status: Mental Status NL Hospital Course Uncomplicated induction, delivery and course. Labs Laboratory Tests Test 11/24/18 05:34 Range/Units White Blood Count 11.8 H 4.3-11.0 10^3/uL Red Blood Count 3.29 L 4.35-5.85 10^6/uL Hemoglobin 9.9 L 11.5-16.0 G/DL Hematocrit 30 L 35-52 % Mean Corpuscular Volume 90 80-99 FL Mean Corpuscular Hemoglobin 30 25-34 PG Mean Corpuscular Hemoglobin Concent 33 32-36 G/DL Red Cell Distribution Width 12.9 10.0-14.5 % Platelet Count 148 130-400 10^3/uL Mean Platelet Volume 10.7 H 7.4-10.4 FL Neutrophils (%) (Auto) 68 42-75 % Lymphocytes (%) (Auto) 20 12-44 % Monocytes (%) (Auto) 10 0-12 % Eosinophils (%) (Auto) 1 0-10 % Basophils (%) (Auto) 0 0-10 % Neutrophils # (Auto) 8.1 H 1.8-7.8 X 10^3 Lymphocytes # (Auto) 2.4 1.0-4.0 X 10^3 Monocytes # (Auto) 1.2 H 0.0-1.0 X 10^3 Eosinophils # (Auto) 0.2 0.0-0.3 10^3/uL Basophils # (Auto) 0.0 0.0-0.1 10^3/uL Discharge Instructions to patient/family Please see electronic discharge instructions given to patient. Discharge Medications Reviewed and agree with Discharge Medication list on patient's Discharge Instruction sheet Clinical Quality Measures DVT/VTE Risk/Contraindication: Risk Factor Score Per Nursin RFS Level Per Nursing on Admit: 1=Low/No VTE PPX Copy Copies To 1: ROBI ALVARADO MD, BETHANY N MD Nov 25, 2018 11:16
--- NOTE | 2018-11-25 12:15 | NUR ---
Pt ambulates off unit to private vehicle, accompanied by RN, SO. No s/s of distress noted. All personal belongings with pt.
== END 2018-11-25 12:15 | disposition home or self-care (01) | DRG 807 ==
LOC: LDRP 07:15
PROVIDERS: ADMIT Family Medicine; ATTEND Family Medicine
PROC: 10E0XZZ Delivery of Products of Conception, External Approach (ICD-10-PCS; principal; 2018-11-23)
PROC: 0KQM0ZZ Repair Perineum Muscle, Open Approach (ICD-10-PCS; 2018-11-23)
DX: O70.1 Second degree perineal laceration during delivery (principal); O69.81X0 Labor and delivery complicated by cord around neck, without compression, not applicable or unspecified; O90.81 Anemia of the puerperium; D64.9 Anemia, unspecified; Z37.0 Single live birth; Z3A.39 39 weeks gestation of pregnancy
CPT/HCPCS: 36415; 85025; 86850; 86900; 86901

== ENCOUNTER 2018-12-02 11:18 | Emergency (ER) | payer MEDICAID ==
[~2018-12-02] VITALS: Ht 170.2 cm; Wt 81.6 kg
[~2018-12-02 11:18] MED LIST changes: +DOCU100C37 PO; +FERR325T18 PO; +IBUP-844 PO
--- OUTSIDE RECORDS SUMMARY | 2018-12-02 11:30 | XMS REPORT | Continuity of Care Document ---
Author Author [facility] Address Unknown Phone Unavailable Allergies Active Description Code Type Severity Reaction Onset Reported/Identified Relationship to Patient Clinical Status Yes No Known Drug Allergies [id number] Drug Allergy Unknown N/A 11/10/2013 Medications There is no data. Problems Date Dx Coded Attending Type Code Diagnosis Diagnosed By [facility] AN PANIC DIS W/O AGORA 11/10/2013 DELMIS VENTURA MD Ot 646.83 PREG COMPL NEC-ANTEPART 11/10/2013 DELMIS VENTURA MD Ot 789.00 ABDOMINAL PAIN, UNSPECIFIED SITE 01/27/2014 DARWIN ARECHIGA DO Ot 599.0 URIN TRACT INFECTION NOS 01/27/2014 DARWIN ARECHIGA DO Ot 646.63 INFECTION-ANTEPARTUM [facility]/01[facility] AN ANXIETY UNSPEC 11/01/2014 [facility] 311 DEPRESSIVE DISORDER NOS 07/14/2016 RAMOS MAHAN, [...] F41.9 ANXIETY DISORDER, UNSPECIFIED 03/09/2017 LAINEY BRIGGS SENIOR PLANNING MANAGER Ot F17.210 NICOTINE DEPENDENCE, CIGARETTES, UNCOMPL 03/09/2017 LAINEY BRIGGS APRN Ot F41.9 ANXIETY DISORDER, UNSPECIFIED 11/25/2018 ROBI ALVARADO MD Ot D64.9 ANEMIA, UNSPECIFIED 11/25/2018 ORBI ALVARADO MD Ot O69.81X0 LABOR AND DEL COMP BY CORD AROUND NECK, 11/25/2018 ROBI ALVARADO MD, Ot O70.1 SECOND DEGREE PERINEAL LACERATION DURING 11/25/2018 ROBI ALVARADO MD, Ot O90.81 ANEMIA OF THE PUERPERIUM 11/25/2018 ROBI ALVARADO MD Ot Z37.0 SINGLE LIVE 11/25/2018 ROBI ALVARADO MD, Ot Z3A.39 39 WEEKS GESTATION OF 11/27/2018 RAMOS MAHAN, SEJAL Varghese Ot N39.0 URINARY TRACT INFECTION, SITE NOT SPECIF Procedures Code Description [place] [address] PSYCH DIAGNOSTIC EVALUATION 11/01/2014 [id number] REPAIR PERINEUM MUSCLE, OPEN APPROACH 11/23/2018 [id number] DELIVERY OF PRODUCTS OF CONCEPTION, EXTE 11/23/2018 Results Test Result Range Complete blood count [...] panel - 11/23/18 07:50 ABO+Rh group OP NR Transfusion band number [id number] [facility] Blood group antibody screen NEGATIVE [facility] Complete blood count (CBC) with automated white blood cell (WBC) differential - 11/24/18 05:34 Blood leukocytes automated count (number/volume) 11.8 10*3/uL 4.3-11.0 Blood erythrocytes automated count (number/volume) 3.29 10*6/uL 4.35-5.85 Venous blood hemoglobin measurement (mass/volume) 9.9 g/dL 11.5-16.0 Blood hematocrit (volume fraction) 30 % 35-52 Automated erythrocyte mean corpuscular volume 90 [foz_us] 80-99 Automated erythrocyte mean corpuscular hemoglobin (mass per erythrocyte) 30 pg 25-34 Automated erythrocyte mean corpuscular hemoglobin concentration measurement ( mass/volume) 33 g/dL 32-36 Automated erythrocyte distribution width ratio 12.9 % 10.0-14.5 Automated blood platelet count (count/volume) 148 10*3/uL 130-400 Automated blood platelet mean volume measurement 10.7 [foz_us] 7.4-10.4 Automated blood neutrophils/100 leukocytes 68 % 42-75 Automated blood lymphocytes/100 leukocytes 20 % 12-44 Blood monocytes/100 leukocytes 10 % 0-12 Automated blood eosinophils/100 leukocytes 1 % 0-10 Automated blood basophils/100 leukocytes 0 % 0-10 Blood neutrophils automated count (number/volume) 8.1 10*3 1.8-7.8 Blood lymphocytes automated count (number/volume) 2.4 10*3 1.0-4.0 Blood monocytes automated count (number/volume) 1.2 10*3 0.0-1.0 Automated eosinophil count 0.2 10*3/uL 0.0-0.3 Automated blood basophil count (count/volume) 0.0 10*3/uL 0.0-0.1 Encounters ACCT No. Visit Date/Time Discharge Status Pt. Type Provider Facility Loc./Unit Complaint [id number] 11/01/2014 11:03:00 11/01/2014 23:59:59 CLS Outpatient [facility] HOWARD R [id number] 11/23/2018 07:15:00 11/25/2018 12:15:00 DIS Inpatient ROBI ALVARADO MD [facility] LDRP INDUCTION [id number] 03/07/2017 12:51:00 03/07/2017 14:20:00 DIS Emergency LAINEY BRIGGS APRN [facility] ER ANXIETY [id number] 03/01/2017 19:02:00 03/01/2017 20:41:00 DIS Emergency BURKE ONEILL [facility] ER POISON IVIS [id number] 06/24/2016 15:32:00 06/24/2016 23:59:59 CLS Outpatient RAMOS MAHAN, SEJAL Varghese [facility] RAD REC UTI [id number] 06/24/2016 13:52:00 06/24/2016 23:59:59 CLS Outpatient TU CARTER [facility] QUICK [id number] 05/27/2016 15:21:00 05/27/2016 23:59:59 CLS Outpatient TU CARTER [facility] QUICK URINE CULTURE [id number] 01/27/2014 20:21:00 01/27/2014 21:35:00 DIS Outpatient DARWIN ARECHIGA DO [facility] WSo ABD PAIN [id number] 11/10/2013 18:26:00 11/10/2013 19:45:00 DIS Emergency AUDREY MAHAN, DELMIS Damon [facility] ER 12 WKS; ABD PAIN [id number] 08/02/2016 15:18:00 08/02/2016 23:59:00 [place] [id number] 03/24/2018 11:30:00 03/24/2018 23:59:59 CLS [facility]
[2018-12-02] MEDS ORDERED: NS IV 1000 ML 1,000 ML IV ONE (12:57)
[2018-12-02 13:07] LABS: BASOPHILS # (AUTO) 0.1 10^3/uL (0.0-0.1); BASOPHILS % (AUTO) 1 % (0-10); EOSINOPHILS # (AUTO) 0.2 10^3/uL (0.0-0.3); EOSINOPHILS % (AUTO) 2 % (0-10); HEMATOCRIT 40 % (35-52); HEMOGLOBIN 13.7 G/DL (11.5-16.0); LYMPHOCYTES # (AUTO) 1.7 X 10^3 (1.0-4.0); LYMPHOCYTES % (AUTO) 18 % (12-44); MEAN CORPUSCULAR HEMOGLOBIN 30 PG (25-34); MEAN CORPUSCULAR HGB CONC 34 G/DL (32-36); MEAN CORPUSCULAR VOLUME 88 FL (80-99); MEAN PLATELET VOLUME 10.1 FL (7.4-10.4); MONOCYTES # (AUTO) 0.5 X 10^3 (0.0-1.0); MONOCYTES % (AUTO) 5 % (0-12); NEUTROPHILS # (AUTO) 6.9 X 10^3 (1.8-7.8); NEUTROPHILS % (AUTO) 74 % (42-75); PLATELET COUNT 255 10^3/uL (130-400); RED CELL DISTRIBUTION WIDTH 13.3 % (10.0-14.5); WHITE BLOOD COUNT 9.4 10^3/uL (4.3-11.0)
[2018-12-02 13:26] LABS: ALANINE AMINOTRANSFERASE 47 U/L (0-55); ALKALINE PHOSPHATASE 120 U/L (40-136); BILIRUBIN,TOTAL 0.4 MG/DL (0.1-1.0); BUN/CREATININE RATIO 16; CARBON DIOXIDE 23 MMOL/L (21-32); CHLORIDE 108 MMOL/L (98-107); CREATININE SERUM 0.74 MG/DL (0.60-1.30); GFR ESTIMATED > 60; GLUCOSE 77 MG/DL (70-105); POTASSIUM 3.8 MMOL/L (3.6-5.0); SODIUM 139 MMOL/L (135-145); TOTAL PROTEIN 6.9 GM/DL (6.4-8.2)
--- NOTE | 2018-12-02 13:28 | ED Abdominal Pain ---
General Chief Complaint: Abdominal/GI Problems Stated Complaint: ,FEELING PRESSURE UNABLE TO WALK Nursing Triage Note: AMBULATED TO TRIAGE WITH ASSISTANCE OF S/O. VAGIANL 5 DAYS AGO. STATES SHE IS HAVING LLQ PAIN AND PRESSURE. STATES WHEN SHE STANDS SHE FEELS LIKE SHE WANTS TO PASS OUT. Sepsis Screen: No Definite Risk Source of Information: Patient Exam Limitations: No Limitations History of Present Illness Date Seen by Provider: Dec 02, 2018 Time Seen by Provider: 12:58 Allergies and Home Medications Allergies Coded Allergies: No Known Drug Allergies (Unverified , 12/02/18) Home Medications Docusate Sodium 100 Mg Capsule, 100 MG PO BID PRN for CONSTIPATION-1ST LINE Prescribed by: JIA PHAM on 11/24/18 0817 Ferrous Sulfate 325 Mg Tablet, 325 MG PO DAILY Prescribed by: JIA PHAM on 11/24/18 0817 Ibuprofen 600 Mg Tablet, 600 MG PO Q6H PRN for PAIN-MODERATE Prescribed by: JIA PHAM on 11/24/18 0817 Pnv Cmb#21/Iron/Folic Acid 1 Each Tablet, 1 EACH PO DAILY, (Reported) Past Glxglom-Pddukn-Qlipjp Hx Patient Social History Alcohol Use: Denies Use Recreational Drug Use: No Smoking Status: Never a Smoker Type Used: Cigarettes 2nd Hand Smoke Exposure: Yes Recent Foreign Travel: No Contact w/Someone Who Travel: No Recent Infectious Disease Expo: No Recent Hopitalizations: Yes (delivery 11/23/18) Immunizations Up To Date PED Vaccines UTD: Yes Date of Influenza Vaccine: Aug 16, 2018 Seasonal Allergies Seasonal Allergies: No Past Medical History Surgeries: No Respiratory: No Cardiac: No Neurological: No Reproductive Disorders: No Female Reproductive Disorders: Denies Sexually Transmitted Disease: No HIV/AIDS: No Genitourinary: No Gastrointestinal: No Musculoskeletal: No Endocrine: No HEENT: No Cancer: No Psychosocial: No Anxiety, Depression Integumentary: No Blood Disorders: No Adverse Reaction/Blood Tranf: No Family Medical History Heart murmur G8 BROTHER No Pertinent Family Hx Physical Exam Vital Signs Vital Signs - First Documented 12/02/18 11:59 Temp 97.9 Pulse 74 Resp 16 B/P (MAP) 126/64 (84) Pulse Ox 99 O2 Delivery Room Air Capillary Refill : Less Than 3 Seconds Height/Weight/BMI Height: 5'7.00" Weight: 180lbs. 0.0oz. 81.255448uk; 30.5 BMI Method:Stated Progress/Results/Core Measures Results/Orders Lab Results Laboratory Tests Test 12/02/18 12:46 12/02/18 16:27 Range/Units White Blood Count 9.4 4.3-11.0 10^3/uL Red Blood Count 4.55 4.35-5.85 10^6/uL Hemoglobin 13.7 11.5-16.0 G/DL Hematocrit 40 35-52 % Mean Corpuscular Volume 88 80-99 FL Mean Corpuscular Hemoglobin 30 25-34 PG Mean Corpuscular Hemoglobin Concent 34 32-36 G/DL Red Cell Distribution Width 13.3 10.0-14.5 % Platelet Count 255 130-400 10^3/uL Mean Platelet Volume 10.1 7.4-10.4 FL Neutrophils (%) (Auto) 74 42-75 % Lymphocytes (%) (Auto) 18 12-44 % Monocytes (%) (Auto) 5 0-12 % Eosinophils (%) (Auto) 2 0-10 % Basophils (%) (Auto) 1 0-10 % Neutrophils # (Auto) 6.9 1.8-7.8 X 10^3 Lymphocytes # (Auto) 1.7 1.0-4.0 X 10^3 Monocytes # (Auto) 0.5 0.0-1.0 X 10^3 Eosinophils # (Auto) 0.2 0.0-0.3 10^3/uL Basophils # (Auto) 0.1 0.0-0.1 10^3/uL Sodium Level 139 135-145 MMOL/L Potassium Level 3.8 3.6-5.0 MMOL/L Chloride Level 108 H 98-107 MMOL/L Carbon Dioxide Level 23 21-32 MMOL/L Anion Gap 8 5-14 MMOL/L Blood Urea Nitrogen 12 7-18 MG/DL Creatinine 0.74 0.60-1.30 MG/DL Estimat Glomerular Filtration Rate > 60 BUN/Creatinine Ratio 16 Glucose Level 77 70-105 MG/DL Calcium Level 9.0 8.5-10.1 MG/DL Corrected Calcium 9.0 8.5-10.1 MG/DL Total Bilirubin 0.4 0.1-1.0 MG/DL Aspartate Amino Transf (AST/SGOT) 24 5-34 U/L Alanine Aminotransferase (ALT/SGPT) 47 0-55 U/L Alkaline Phosphatase 120 40-136 U/L Total Protein 6.9 6.4-8.2 GM/DL Albumin 4.0 3.2-4.5 GM/DL Urine Color YELLOW Urine Clarity SLIGHTLY CLOUDY Urine pH 6.0 5-9 Urine Specific [place] 1.015 L 1.016-1.022 Urine Protein NEGATIVE NEGATIVE Urine Glucose (UA) NEGATIVE NEGATIVE Urine Ketones NEGATIVE NEGATIVE Urine Nitrite NEGATIVE NEGATIVE Urine Bilirubin NEGATIVE NEGATIVE Urine Urobilinogen NORMAL NORMAL MG/DL Urine Leukocyte Esterase 3+ H NEGATIVE Urine RBC (Auto) 5+ H NEGATIVE Urine RBC RARE /HPF Urine WBC 10-25 H /HPF Urine Squamous Epithelial Cells 10-25 H /HPF Urine Renal Epithelial Cells NONE /HPF Urine Crystals NONE /LPF Urine Bacteria MODERATE H /HPF Urine Casts NONE /LPF Urine Mucus SMALL H /LPF Urine Culture Indicated YES My Orders Orders - DANE MENDEZ MD Cbc With Automated Diff (12/02/18 12:57) Comprehensive Metabolic Panel (12/02/18 12:57) Ua Culture If Indicated (12/02/18 12:57) Saline Lock/Iv-Start (12/02/18 12:57) Saline Lock/Iv-Start (12/02/18 12:57) Ns Iv 1000 Ml (Sodium Chloride 0.9%) (12/02/18 12:57) Abdomen/Kub 1view (12/02/18 13:18) Urine Culture (12/02/18 16:27) Medications Given in ED Current Medications Medications Dose Ordered Sig/Irvin Route Start Time Stop Time Status Last Admin Dose Admin Sodium Chloride 1,000 ml @ 0 mls/hr Q0M ONCE IV 12/02/18 12:57 12/02/18 12:59 DC 12/02/18 13:07 0 MLS/HR Vital Signs/I&O 12/02/18 11:59 Temp 97.9 Pulse 74 Resp 16 B/P (MAP) 126/64 (84) Pulse Ox 99 O2 Delivery Room Air Blood Pressure Mean: 84 Diagnostic Imaging Diagonstic Imaging: Xray Plain Films/CT/US/NM/MRI: abdomen, pelvis Comments KUB viewed by me and report reviewed. See report below: NAME: NIRMAL COOPER MED REC#: [id number] PT STATUS: REG ER : 1990 PHYSICIAN: DANE MENDEZ MD ADMIT DATE: 12/02/18/ER Signed Date of Exam: 12/02/18 ABDOMEN/KUB 1VIEW INDICATION: 9 days status post . Nausea with left-sided abdominal pain. FINDINGS: Supine views of the abdomen show normal bowel gas pattern. No mass or calculus is seen. There is no bony abnormality. IMPRESSION: No acute abnormality is seen. Dictated by: Dictated on workstation # [id number] Dict: 12/02/18 1329 Trans: 12/02/18 1336 Interpreted by: CELIA CALDWELL MD Electronically signed by: CELIA CALDWELL MD 12/02/18 1336 Departure Impression Primary Impression: Urinary tract infection Qualified Codes: N39.0 - Urinary tract infection, site not specified Additional Impression: Left lower quadrant pain Disposition: 01 HOME, SELF-CARE Condition: Stable Departure-Patient Inst. Decision time for Depature: 17:47 Referrals: NO,LOCAL PHYSICIAN (PCP) Primary Care Physician DOMINIC FONSECA (Family) Primary Care Physician Patient Instructions: Acute Abdomen (Belly Pain), Adult (DC), Urinary Tract Infection, Adult (DC) Add. Discharge Instructions: Drink plenty of clear liquids. You may take ibuprofen up to 600 mg every 6 hours and/or Tylenol (acetaminophen ) up to 1000 mg every 6 hours as needed for pain. If pain is escalating or not controlled by these medications, if you develop temperature over 100, if you have changes to your vaginal discharge, or if you have any other concerns, please return to the emergency room. Complete your antibiotic as prescribed. Review urine culture results with your primary care provider early next week. Contact your primary care provider on Tuesday morning if symptoms have not completely resolved. All discharge instructions reviewed with patient and/or family. Voiced understanding. Scripts Cephalexin (Keflex) 500 Mg Capsule 500 MG PO QID, #28 CAP Prov: DANE MENDEZ MD 12/02/18 DANE MENDEZ MD Dec 02, 2018 13:28
--- NOTE | 2018-12-02 13:33 | Diagnostic Imaging Report ---
INDICATION: 9 days status post . Nausea with left-sided abdominal pain. FINDINGS: Supine views of the abdomen show normal bowel gas pattern. No mass or calculus is seen. There is no bony abnormality. IMPRESSION: No acute abnormality is seen. Dictated by: Dictated on workstation # [id number]
[2018-12-02 17:39] LABS: BILIRUBIN,URINE NEGATIVE (NEGATIVE); CLARITY,URINE SLIGHTLY CLOUDY; COLOR,URINE YELLOW; GLUCOSE, URINE (UA) NEGATIVE (NEGATIVE); KETONES,URINE NEGATIVE (NEGATIVE); LEUKOCYTE ESTERASE ,URINE 3+ (NEGATIVE); NITRITE,URINE NEGATIVE (NEGATIVE); PROTEIN,URINE NEGATIVE (NEGATIVE); RBC,URINE RARE /HPF; UROBILINOGEN,URINE NORMAL (NORMAL)
[2018-12-02 17:40] LABS: BACTERIA,URINE MODERATE /HPF
[2018-12-02] MEDS ORDERED: CEPH-507 PO (17:49)
[2018-12-02 18:10] VITALS: BP 120/78
== END 2018-12-02 18:08 | disposition home or self-care (01) ==
LOC: EDUNIT# 11:18 → ER 11:20
DX: O86.29 Other urinary tract infection following delivery (principal); O99.345 Other mental disorders complicating the puerperium; F41.9 Anxiety disorder, unspecified; F32.9 Major depressive disorder, single episode, unspecified; Z77.22 Contact with and (suspected) exposure to environmental tobacco smoke (acute) (chronic)
CPT/HCPCS: 36415; 74018; 80053; 81000; 85025; 87088

== ENCOUNTER 2022-02-28 11:08 | Emergency (ER) | payer SELFPAY ==
[~2022-02-28] VITALS: Ht 170.2 cm; Wt 89.4 kg
[~2022-02-28 11:08] MED LIST changes: +CEPH-507 PO
[2022-02-28] MEDS ORDERED: predniSONE 20 MG TAB PO ONE (11:30)
[2022-02-28] MEDS ORDERED: HYDR-700 PO (11:33)
[2022-02-28] MEDS ORDERED: PRD50T PO (11:33)
--- NOTE | 2022-02-28 11:33 | ED Integumentary General ---
General Chief Complaint: Skin/Wound Problems Stated Complaint: RASH ALL OVER - BILET FEET/ANKLE SWELLING Nursing Triage Note: PT AMB TO [facility] WITH COMPLAINT OF RASH ALL OVER. STATES STARTED TWO DAYS AGO. WENT TO WALKIN AND WAS GIVEN TOPICAL STEROID CREAM. Source: patient Exam Limitations: no limitations History of Present Illness Date Seen by Provider: February 28, 2022 Time Seen by Provider: 11:29 Initial Comments Patient is a 31-year-old female who presents ED with a red itchy rash. Started around her wrist, bilateral anterior elbows and has spread to her left lower abdomen and feet. She states her rash is itchy. Went to the walk-in clinic yesterday was given topical steroids. She states his topical steroids are not working and the rash is spreading. She reports itching but has been taken Benadryl and Pepcid which was recommended at the walk-in clinic. She denies being outside or exposed to poison [place]. Denies history of similar type rash. She states she is highly allergic to poison [place]. She denies being outside and sweating. She denies chest pain short of breath sore throat fever, recent URI infection, abdominal pain vomiting, diarrhea. No change in soaps laundry detergents, medications. Allergies and Home Medications Allergies Coded Allergies: No Known Drug Allergies (Unverified , 12/02/18) Patient Home Medication List Home Medication List Reviewed: Yes Cephalexin (Keflex) 500 Mg Capsule, 500 MG PO QID Prescribed by: DANE CANTU on 12/02/18 1749 Docusate Sodium (Docusate Sodium) 100 Mg Capsule, 100 MG PO BID PRN for CONSTIPATION-1ST LINE Prescribed by: JIA PHAM on 11/24/18 0817 Ferrous Sulfate (Ferrous Sulfate) 325 Mg Tablet, 325 MG PO DAILY Prescribed by: JIA PHAM on 11/24/18 0817 Hydroxyzine HCl (Hydroxyzine HCl) 25 Mg Tablet, 25 MG PO Q6H PRN for ITCHING Prescribed by: DAYAMI COLE on 02/28/22 1133 Ibuprofen (Ibu) 600 Mg Tablet, 600 MG PO Q6H PRN for PAIN-MODERATE Prescribed by: JIA PHAM on 11/24/18 0817 Pnv Cmb#21/Iron/Folic Acid ( Complete Caplet) 1 Each Tablet, 1 EACH PO DAILY, (Reported) Entered as Reported by: TAI DAVENPORT on 11/10/13 1836 Prednisone (Prednisone) 50 Mg Tab, 50 MG PO DAILY Prescribed by: DAYAMI COLE on 02/28/22 1133 Review of Systems Review of Systems Constitutional: No chills, No diaphoresis, No malaise, No weakness EENTM: No hearing loss, No blurred vision, No double vision Respiratory: No cough, No dyspnea on exertion Cardiovascular: No chest pain Gastrointestinal: No abdominal pain, No nausea Musculoskeletal: No back pain, No joint pain Skin: pruritus, rash All Other Systems Reviewed Negative Unless Noted: Yes Past Xempzrr-Duabzo-Ofnnpc Hx Patient Social History Tobacco Use?: No Use of E-Cig and/or Vaping dev: No Substance use?: No Alcohol Use?: No Pt feels they are or have been: No Immunizations Up To Date PED Vaccines UTD: Yes Seasonal Allergies Seasonal Allergies: No Past Medical History Surgeries: No Respiratory: No Cardiac: No Neurological: No Reproductive Disorders: No Female Reproductive Disorders: Denies Sexually Transmitted Disease: No HIV/AIDS: No Genitourinary: No Gastrointestinal: No Musculoskeletal: No Endocrine: No HEENT: No Cancer: No Psychosocial: Yes Anxiety, Depression Integumentary: No Blood Disorders: No Adverse Reaction/Blood Tranf: No Family Medical History Heart murmur G8 BROTHER No Pertinent Family Hx Physical Exam Vital Signs Vital Signs - First Documented 02/28/22 11:13 Pulse 81 Resp 16 B/P (MAP) 126/83 (97) Pulse Ox 98 O2 Delivery Room Air Capillary Refill : Less Than 3 Seconds General Appearance: WD/WN, no apparent distress HEENT: PERRL/EOMI, normal ENT inspection, TMs normal, pharynx normal Neck: non-tender, full range of motion, supple, normal inspection Cardiovascular: regular rate, rhythm, no edema, no gallop, no JVD Respiratory: chest non-tender, lungs clear, normal breath sounds, no respiratory distress Gastrointestinal: normal bowel sounds, non tender, soft Back: normal inspection, no CVA tenderness Extremities: non-tender 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 No pustules, vesicles, crusting) Progress/Results/Core Measures Results/Orders My Orders Orders - MAYA HANNAH Prednisone Tablet (Deltasone Tablet) (02/28/22 11:30) Prednisone Tablet (Deltasone Tablet) (02/28/22 11:35) Medications Given in ED Current Medications Medications Dose Ordered Sig/Irvin Route Start Time Stop Time Status Last Admin Dose Admin Prednisone 50 mg ONCE ONCE PO 02/28/22 11:30 02/28/22 11:31 DC 02/28/22 11:39 50 MG Vital Signs/I&O 02/28/22 02/28/22 11:13 11:39 Pulse 81 81 Resp 16 16 B/P (MAP) 126/83 (97) 126/83 Pulse Ox 98 98 O2 Delivery Room Air Room Air Blood Pressure Mean: 97 Departure Communication (PCP) Rash appears to be a hypersensitivity rash likely secondary to contact. Possible heat rash secondary to the location in the folds of the anterior cubital and feet. Does not appear to be fungal. Discussed Benadryl or will discharge with hydroxyzine that she may try if no improvement with Benadryl. Will discharge with short burst steroids. Do not think she needs lengthy dose of steroids secondary to the severity of the rash. She failed topical steroids. Does not appear to be cellulitic or infectious. Discussed calamine lotion. Recommend switching out close regularly. If any potential contact discussed looking for potential causes. If any worsening symptoms return back to ED for further evaluation. No throat swelling, shortness of breath, wheezing, recent URI fever suggesting viral etiology Impression Primary Impression: Rash Disposition: 01 HOME, SELF-CARE Condition: Stable Departure-Patient Inst. Decision time for Depature: 11:31 Referrals: [facility] (PCP/Family) Primary Care Physician Patient Instructions: Skin Rash (DC) Scripts Hydroxyzine HCl (Hydroxyzine HCl) 25 Mg Tablet 25 MG PO Q6H PRN for ITCHING, #16 TAB Prov: MAYA HANNAH 02/28/22 Prednisone (Prednisone) 50 Mg Tab 50 MG PO DAILY for 4 Days, #4 TAB Prov: MAYA HANNAH 02/28/22 MAYA HANNAH February 28, 2022 11:33
[2022-02-28] MEDS ORDERED: predniSONE 10 MG TAB ONE (11:35)
[2022-02-28 11:39] VITALS: BP 126/83
== END 2022-02-28 11:39 | disposition home or self-care (01) ==
LOC: EDUNIT# 11:08 → ER 11:09
DX: R21 Rash and other nonspecific skin eruption (principal)
CPT/HCPCS: 99283